=== PATIENT | female | born 1950 | race African-American/Black ===

== ENCOUNTER 2016-06-23 18:30 | Emergency (ER) | payer MEDICARE, MEDICAID ==
[2016-06-20] MEDS: METFORMIN HCL 500 MG TABLET PO SCH (09:00)
--- NOTE | 2016-06-23 19:38 | ER Document Report ---
ED Psych Disorder / Suicide - General Chief Complaint: Psych Problem Stated Complaint: PSYCH EVAL Notes: The patient is a 65-year-old female, past medical history depression, hypertension, diabetes, presents from [facility] after she was evaluated for increasing auditory hallucinations and depression. She has been off her Depakote for the past 2 weeks because she was switched to generic Depakote and this caused sores in her mouth. She is trying Orajel without much relief. She denies suicidality, homicidality, headache, back pain, chest pain, shortness of breath, difficulty swallowing or fevers. TRAVEL OUTSIDE OF THE [place] 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 - Social History Smoking Status: Unknown if Ever Smoked Family History: Reviewed & Not Pertinent - Past Medical History Cardiac Medical History: Reports: Hx Hypertension Denies: Hx Coronary Artery Disease, Hx Heart Attack Pulmonary Medical History: Denies: Hx Asthma, Hx Bronchitis, Hx COPD, Hx Pneumonia Neurological Medical History: Denies: Hx Cerebrovascular Accident, Hx Seizures Endocrine Medical History: Reports: Hx Diabetes Mellitus Type 2 Renal/ Medical History: Denies: Hx Peritoneal Dialysis Musculoskeltal Medical History: Denies Hx Arthritis Psychiatric Medical History: Reports: Hx Bipolar Disorder Past Surgical History: Reports: Hx Tubal Ligation, Hx Urinary Tract Surgery. Denies: Hx Hysterectomy - Immunizations Hx Diphtheria, Pertussis, Tetanus Vaccination: Yes Hx Pneumococcal Vaccination: 12/12/13 Review of Systems - Review of Systems Notes: REVIEW OF SYSTEMS: CONSTITUTIONAL: -fevers, -chills EENT: -eye pain, -difficulty swallowing, -nasal congestion CARDIOVASCULAR:-chest pain, -syncope. RESPIRATORY: -cough, -SOB GASTROINTESTINAL: -abdominal pain, - nausea, -vomiting, -diarrhea GENITOURINARY: -dysuria, -hematuria MUSCULOSKELETAL: -back pain, -neck pain SKIN: -rash or skin lesions. HEMATOLOGIC: -easy bruising or bleeding. LYMPHATIC: -swollen, enlarged glands. NEUROLOGICAL: -headache, -neurologic symptoms PSYCHIATRIC: -anxiety, +depression, -SI, -HI, +hallucinations ALL OTHER SYSTEMS REVIEWED AND NEGATIVE. Physical Exam - Vital signs Vitals: Temp Pulse Resp BP Pulse Ox 98.5 F 97 18 160/81 H 96 06/23/16 18:59 06/23/16 18:59 06/23/16 18:59 06/23/16 18:59 06/23/16 18:59 - Notes Notes: PHYSICAL EXAMINATION: GENERAL: Well-appearing, well-nourished and in no acute distress. HEAD: Atraumatic, normocephalic. EYES: Pupils equal round and reactive to light, extraocular movements intact, sclera anicteric, conjunctiva are normal. ENT: multiple aphthous ulcers, nares patent, oropharynx clear without exudates. Moist mucous membranes. NECK: Normal range of motion, supple without lymphadenopathy LUNGS: Breath sounds clear to auscultation bilaterally and equal. No wheezes rales or rhonchi. HEART: Regular rate and rhythm without murmurs ABDOMEN: Soft, nontender, normoactive bowel sounds. No guarding, no rebound. No masses appreciated. EXTREMITIES: Normal range of motion, no pitting or edema. No cyanosis. NEUROLOGICAL: Cranial nerves grossly intact. Normal speech, normal gait. Normal sensory, motor, and reflex exams. PSYCH: Cooperative, auditory gnosticism hallucinations, mumbles answers SKIN: Warm, Dry, normal turgor, no rashes or lesions noted. Course - Re-evaluation Re-evalutation: With increasing depression and auditory hallucinations after stopping her Depakote, will have mental health evaluate patient for medication adjustments. Labs and urine sent to assess for other causes of her altered mental status. She denies SI or HI. Urine shows evidence of UTI, although there are signs of a contaminated specimen. Will treat with Macrobid. Sodium is 151. Will provide water for patient to drink. Also will provide KCl for slight hypokalemia. - Vital Signs Vital signs: Temp Pulse Resp BP Pulse Ox 97.4 F 88 18 156/77 H 99 06/24/16 06:57 06/24/16 06:57 06/24/16 06:57 06/24/16 06:57 06/24/16 06:57 - Laboratory Result Diagrams: 06/23/16 20:05 06/23/16 20:05 Laboratory results interpreted by me: 06/23/16 06/23/16 06/23/16 19:40 20:05 20:05 Hgb 10.2 L Hct 32.3 L MCV 67 L MCH 21.2 L MCHC 31.6 L RDW 16.3 H Monocytes % 15.1 H Sodium 151.2 H Potassium 3.3 L Glucose 154 H Urine Protein 100 H Urine Ketones TRACE H Urine Blood MODERATE H Urine Urobilinogen 4.0 H Ur Leukocyte Esterase LARGE H Salicylates < 1.0 L Acetaminophen < 10 L Discharge - Discharge Clinical Impression: Auditory hallucination Condition: Stable Disposition: PSYCH HOSP/UNIT
[2016-06-23 20:03] LABS: APPEARANCE,URINE CLOUDY; BILIRUBIN,URINE NEGATIVE (NEGATIVE); GLUCOSE, URINE NEGATIVE (NEGATIVE); KETONES,URINE TRACE mg/dL (NEGATIVE); LEUKOCYTE ESTERASE,URINE LARGE (NEGATIVE); NITRITE,URINE NEGATIVE (NEGATIVE); PROTEIN,URINE 100 mg/dL (NEGATIVE); URINE SPECIFIC GRAVITY 1.029
[2016-06-23 20:14] LABS: URINE BARBITURATES SCREEN NEGATIVE; URINE METHADONE SCREEN NEGATIVE; URINE OPIATES LOW NEGATIVE; URINE PHENCYCLIDINE SCREEN NEGATIVE
[2016-06-23 20:18] LABS: ABSOLUTE BASOPHILS # (AUTO) 0.1 10^3/uL (0.0-0.2); ABSOLUTE EOSINOPHILS # (AUTO) 0.2 10^3/uL (0.0-0.6); ABSOLUTE LYMPHOCYTES (AUTO) 1.6 10^3/uL (0.5-4.7); ABSOLUTE MONOCYTES (AUTO) 0.9 10^3/uL (0.1-1.4); ABSOLUTE NEUT (AUTO) 3.5 10^3/uL (1.7-8.2); EOSINOPHILS % (AUTO) 2.8 % (0-6); HEMATOCRIT 32.3 % (36.0-47.0); HEMOGLOBIN 10.2 g/dL (12.0-15.5); HGB HCT DIFFERENCE -1.7; LYMPHOCYTES % (AUTO) 25.5 % (13-45); MEAN CORPUSCULAR HEMOGLOBIN 21.2 pg (27.0-33.4); MEAN CORPUSCULAR HGB CONC 31.6 g/dL (32.0-36.0); MEAN CORPUSCULAR VOLUME 67 fl (80-97); MONOCYTES % (AUTO) 15.1 % (3-13); RED BLOOD COUNT 4.82 10^6/uL (3.72-5.28); RED CELL DISTRIBUTION WIDTH 16.3 % (11.5-14.0); SEGMENTED NEUTROPHILS % (AUTO) 55.6 % (42-78); WHITE BLOOD COUNT 6.2 10^3/uL (4.0-10.5)
[2016-06-23 20:30] LABS: ALANINE AMINOTRANSFERASE 40 U/L (9-52); ALBUMIN 4.2 g/dL (3.5-5.0); ALKALINE PHOSPHATASE 77 U/L (38-126); ANION GAP 14 (5-19); ASPARTATE AMINO TRANSFERASE 35 U/L (14-36); BILIRUBIN,DIRECT 0.3 mg/dL (0.0-0.4); BILIRUBIN,TOTAL 0.8 mg/dL (0.2-1.3); BLOOD UREA NITROGEN 13 mg/dL (7-20); CALCIUM 9.9 mg/dL (8.4-10.2); CARBON DIOXIDE 30 mmol/L (22-30); CHLORIDE 107 mmol/L (98-107); CREATININE RESULT 0.61 mg/dL (0.52-1.25); GLUCOSE 154 mg/dL (75-110); POTASSIUM 3.3 mmol/L (3.6-5.0); SODIUM 151.2 mmol/L (137-145); TOTAL PROTEIN 7.2 g/dL (6.3-8.2)
[2016-06-23 20:31] LABS: ALCOHOL < 10 mg/dL (NONE DETECTED)
[2016-06-23] MEDS ORDERED: NYSTATIN/DEXAMETH/DIPHEN SUSP 120 ML PO PRN (21:06)
[2016-06-23] MEDS: NITROFURANTOIN MONOHYD/M-CRYST 100 MG CAPSULE PO SCH (21:47)
[2016-06-23] MEDS: NYSTATIN/DEXAMETH/DIPHEN SUSP 120 ML PO PRN (21:48)
[2016-06-23] MEDS ORDERED: ACETAMINOPHEN 325 MG TABLET PO ONE (23:17)
[2016-06-23] MEDS: HALOPERIDOL 5 MG TABLET PO PRN (23:24)
[2016-06-24] MEDS: NYSTATIN/DEXAMETH/DIPHEN SUSP 120 ML PO PRN ×3 (06:46→19:50)
--- NOTE | 2016-06-24 08:31 | EKG REPORT ---
SEVERITY:- ABNORMAL ECG - SINUS RHYTHM FIRST DEGREE AV BLOCK LEFT AXIS DEVIATION BORDERLINE PROLONGED QT INTERVAL : Confirmed by: Reji Hogue MD 24-Jun-2016 08:30:48
[2016-06-24] MEDS: NITROFURANTOIN MONOHYD/M-CRYST 100 MG CAPSULE PO SCH ×2 (08:52→21:50)
[2016-06-24] MEDS ORDERED: METFORMIN HCL 1000 MG PO SCH (10:00)
[2016-06-24] MEDS ORDERED: (PENDING PHARMACY ID) (Potassium Chloride [Potassium Chloride] 10 MEQ) PO SCH (10:00)
[2016-06-24] MEDS: TRIAMTERENE/HYDROCHLOROTHIAZID 75-50 MG TABLET PO SCH (11:02)
[2016-06-24] MEDS: POTASSIUM CHLORIDE 10 MEQ TABLET.SA PO SCH (11:02)
[2016-06-24] MEDS: LISINOPRIL 10 MG TABLET PO SCH (11:02)
[2016-06-24] MEDS: METFORMIN HCL 500 MG TABLET PO SCH ×3 (11:06→21:51)
[2016-06-24] MEDS: DIVALPROEX SODIUM 125 MG CAP.SPRINK PO SCH (16:56)
[2016-06-24] MEDS: HALOPERIDOL 5 MG TABLET PO PRN (21:51)
[2016-06-24] MEDS ORDERED: ACETAMINOPHEN 325 MG TABLET PO ONE (23:45)
[2016-06-25] MEDS ORDERED: HALOPERIDOL LACTATE INJ 5 MG/1 ML VIAL IM ONE (01:45)
[2016-06-25] MEDS ORDERED: LORAZEPAM INJ 2 MG/1 ML VIAL IM ONE (01:45)
[2016-06-25] MEDS: NITROFURANTOIN MONOHYD/M-CRYST 100 MG CAPSULE PO SCH ×2 (09:13→21:16)
[2016-06-25] MEDS: METFORMIN HCL 500 MG TABLET PO SCH ×4 (09:13→21:16)
--- NOTE | 2016-06-25 10:13 | ER Document Report ---
ED Medical Screen (RME) - General Chief Complaint: Psych Problem Stated Complaint: PSYCH EVAL Notes: Progress note: This patient is here on day 2 after presentation for acute psychoses. Reportedly the patient had been stable on Depakote for many years but then recently stopped taking her medication because she had some sort of rash in her mouth. She became psychotic and presented to the emergency department agitated and lashing out. She required sedation on initial arrival. She is not suicidal or homicidal. The patient has been given Depakote here in the emergency department and plan is to get her therapeutic on the Depakote before discharge - possibly 2-3 more days. Patient slept and had no issues through the night. Vital signs are stable. I did note that the patient's sodium is 152 which is hypernatremic. We will recheck that today and encourage by mouth fluids as this is likely secondary to mild dehydration. TRAVEL OUTSIDE OF THE [place] IN LAST 30 DAYS: No - Related Data Allergies/Adverse Reactions: codeine [Codeine] Allergy (Mild, Verified 05/16/15 08:38) Nausea Past Medical History - Social History Chew tobacco use (# tins/day): No Frequency of alcohol use: None Drug Abuse: None - Past Medical History Cardiac Medical History: Reports: Hx Hypertension Denies: Hx Coronary Artery Disease, Hx Heart Attack Pulmonary Medical History: Denies: Hx Asthma, Hx Bronchitis, Hx COPD, Hx Pneumonia Neurological Medical History: Denies: Hx Cerebrovascular Accident, Hx Seizures Endocrine Medical History: Reports: Hx Diabetes Mellitus Type 2 Renal/ Medical History: Denies: Hx Peritoneal Dialysis Musculoskeltal Medical History: Denies Hx Arthritis Psychiatric Medical History: Reports: Hx Bipolar Disorder Past Surgical History: Reports: Hx Tubal Ligation, Hx Urinary Tract Surgery. Denies: Hx Hysterectomy - Immunizations Hx Diphtheria, Pertussis, Tetanus Vaccination: Yes Physical Exam - Vital signs Vitals: Temp Pulse Resp BP Pulse Ox 98.5 F 97 18 160/81 H 96 06/23/16 18:59 06/23/16 18:59 06/23/16 18:59 06/23/16 18:59 06/23/16 18:59 Course - Vital Signs Vital signs: Temp Pulse Resp BP Pulse Ox 97.0 F 89 16 145/82 H 95 06/25/16 05:00 06/25/16 05:00 06/25/16 05:00 06/25/16 05:00 06/25/16 05:00 - Laboratory Result Diagrams: 06/23/16 20:05 06/23/16 20:05 Laboratory results interpreted by me: 06/23/16 06/23/16 06/23/16 19:40 20:05 20:05 Hgb 10.2 L Hct 32.3 L MCV 67 L MCH 21.2 L MCHC 31.6 L RDW 16.3 H Monocytes % 15.1 H Sodium 151.2 H Potassium 3.3 L Glucose 154 H Urine Protein 100 H Urine Ketones TRACE H Urine Blood MODERATE H Urine Urobilinogen 4.0 H Ur Leukocyte Esterase LARGE H Salicylates < 1.0 L Acetaminophen < 10 L Doctor's Discharge - Discharge Clinical Impression: Auditory hallucination Condition: Stable Disposition: PSYCH HOSP/UNIT Referrals: MICHAEL REEVES FNP [Primary Care Provider] - Follow up as needed
[2016-06-25] MEDS: LISINOPRIL 10 MG TABLET PO SCH (10:54)
[2016-06-25] MEDS: TRIAMTERENE/HYDROCHLOROTHIAZID 75-50 MG TABLET PO SCH (10:54)
[2016-06-25] MEDS: POTASSIUM CHLORIDE 10 MEQ TABLET.SA PO SCH (10:54)
--- NOTE | 2016-06-25 11:21 | PSYCHOLOGICAL NOTE ---
Psych Note - Psych Note Psych Note: The patient is a 65-year-old female, past medical history depression, hypertension, diabetes, presents from [facility] after she was evaluated for increasing auditory hallucinations and depression. She has been off her Depakote for the past 2 weeks because she was switched to generic Depakote and this caused sores in her mouth. Patient discloses that she is not feeling well. She continued to disclose that when she came in she "could not see" and today she can "see only a little bit." Patient was indicating her eyes at this point. Clinician notes patient is demonstrating behavior indicating patient is becoming more aware and not as manic. Patient states she will take her medication however it has to be "the sanchez one not the pink one." Clinician notes patient was taking the name brand medication Depakote previously and reports she had allergic reaction to generic version when switched. Patient states she is willing to take the name brand again. 296.80 (F31.9) Unspecified bipolar per history provided by family Impression\\plan: Patient is recommended for continued mental health hold until patient's medications are within therapeutic range. Patient has been demonstrating manic behavior with delusions but is starting to verbalize information that could indicate she is improving and becoming more aware. Patient had been off medication for approximately 2 weeks. Patient will be reevaluated. Dr. Victoria was consulted on the care and management of this patient; attending physician is in agreement with recommendations and disposition
[2016-06-25 13:14] LABS: ANION GAP 16 (5-19); BLOOD UREA NITROGEN 12 mg/dL (7-20); CARBON DIOXIDE 28 mmol/L (22-30); CHLORIDE 100 mmol/L (98-107); CREATININE RESULT 0.73 mg/dL (0.52-1.25); GLUCOSE 119 mg/dL (75-110); POTASSIUM 3.2 mmol/L (3.6-5.0); SODIUM 144.1 mmol/L (137-145)
[2016-06-25] MEDS: DIVALPROEX SODIUM 125 MG CAP.SPRINK PO SCH (17:04)
[2016-06-25] MEDS: NYSTATIN/DEXAMETH/DIPHEN SUSP 120 ML PO PRN (21:15)
[2016-06-26] MEDS: HALOPERIDOL 5 MG TABLET PO PRN (02:11)
[2016-06-26] MEDS ORDERED: OLANZAPINE 5 MG TABLET PO ONE (03:43)
[2016-06-26] MEDS: METFORMIN HCL 500 MG TABLET PO SCH ×4 (08:00→21:05)
[2016-06-26] MEDS: NITROFURANTOIN MONOHYD/M-CRYST 100 MG CAPSULE PO SCH ×2 (09:09→21:05)
[2016-06-26] MEDS: POTASSIUM CHLORIDE 10 MEQ TABLET.SA PO SCH (09:35)
[2016-06-26] MEDS: TRIAMTERENE/HYDROCHLOROTHIAZID 75-50 MG TABLET PO SCH (09:35)
[2016-06-26] MEDS: LISINOPRIL 10 MG TABLET PO SCH (09:35)
--- NOTE | 2016-06-26 10:24 | ER Document Report ---
Doctor's Note Notes: 06/26/16 10:23 Rounds: Patient record reviewed and patient interviewed. Patient seems to be much better and says she feels much better this morning. It is very calm and cooperative and feels she is doing better since she's been given her medications. A Depakote level is being drawn. Vital signs are all normal. Patient's urinalysis looks like a UTI. She's been started on nitrofurantoin. Patient appears to be medically stable for transfer or discharge. Daniel Medina M.D.
[2016-06-26] MEDS: DIVALPROEX SODIUM 125 MG CAP.SPRINK PO SCH (17:00)
[2016-06-26] MEDS: NYSTATIN/DEXAMETH/DIPHEN SUSP 120 ML PO PRN (17:00)
[2016-06-26] MEDS ORDERED: RISPERIDONE 1 MG TABLET PO ONE (22:14)
--- NOTE | 2016-06-27 07:50 | PSYCHOLOGICAL NOTE ---
Psych Note - Psych Note Psych Note: The patient is a 65-year-old female, past medical history depression, hypertension, diabetes, presents from [facility] after she was evaluated for increasing auditory hallucinations and depression. She has been off her Depakote for the past 2 weeks because she was switched to generic Depakote and this caused sores in her mouth. Clinician conducted check in Patient openly engaged with clinician. She discussed step by step the process of using the hospital's public bathroom. Patient is observed to be focused on wanting to write information down. Patient appears to understand information once she goes through the process of writing it. Patient's family states the patient is still not presenting normal; "still 100% not her." 296.80 (F31.9) Unspecified bipolar per history provided by family Impression\\plan: Patient is recommended for continued mental health hold until patient's medications are within therapeutic range. Patient has been demonstrating manic behavior with delusions but is starting to verbalize information that could indicate she is improving and becoming more aware. Patient appears to understand information better when written. Patient had been off medication for approximately 2 weeks. Patient will be reevaluated. Dr. Victoria was consulted on the care and management of this patient; attending physician is in agreement with recommendations and disposition
[2016-06-27] MEDS ORDERED: POTASSIUM CHLORIDE 10 MEQ TABLET.SA PO ONE (09:57)
[2016-06-27] MEDS: LISINOPRIL 10 MG TABLET PO SCH (10:00)
[2016-06-27] MEDS: NITROFURANTOIN MONOHYD/M-CRYST 100 MG CAPSULE PO SCH (10:00)
[2016-06-27] MEDS: TRIAMTERENE/HYDROCHLOROTHIAZID 75-50 MG TABLET PO SCH (10:00)
[2016-06-27] MEDS: POTASSIUM CHLORIDE 10 MEQ TABLET.SA PO SCH (10:00)
--- NOTE | 2016-06-27 10:20 | ER Document Report ---
Doctor's Note Notes: 06/27/16 10:19 Rounds: Chart reviewed and patient interviewed. Patient is very alert and happy and seems to be quite stable medically at this time. Vital signs are all normal. Patient's initial labs had a high sodium, but it's come down to 144. Potassium remains low at 3.2. Patient is being given oral potassium 40 mEq this morning. She is also on an antibiotic for a likely UTI. Her valproic acid level was 25. Patient appears to be medically stable for transfer or discharge. Likely that she will be discharged today. Daniel Medina M.D.
--- NOTE | 2016-06-27 10:37 | ER Document Report ---
ED Psych Disorder / Suicide - General Chief Complaint: Psych Problem Stated Complaint: PSYCH EVAL Information source: Patient, Relative - Daughter is marah, [facility] Records TRAVEL OUTSIDE OF THE [place] IN LAST 30 DAYS: No - HPI Patient complains to provider of: Bizarre behavior - pt reportedly demonstrated manic type symptoms sercondary to d/c her Depakote x 2 weeks, Hallucinating - upon arrival Onset: Last week - within the past 2 weeks Onset was: Gradual Suicide Risk Factors: Bipolar, Frightened friends/family, Hallucinations Situational problems related to: Other - Family reports the patient developed a rash in her mouth when her Depakote was switched to the generic brand Normal mood: Yes Associated symptoms: Normal affect - Today upon evaluation, Normal mood - Today upon evaluation, Auditory hallucinations - GRAVEL HAULER, Flight of ideas - GRAVEL HAULER, Manic - GRAVEL HAULER, Visual hallucinations - GRAVEL HAULER Similar symptoms previously: Yes Recently seen / treated by doctor: Yes - [facility] sent to ER Notes: Patient is a 65-year-old female who initially presented via [facility] with complaints of hallucinations, and possible reaction to generic form of Depakote. Patient has been held in the Department under a mental health hold monitored while medications were administered to assist with stabilization. Patient today presents pleasant and is asking for a shower. Patient has taken all medications as ordered. Patient today is smiling and pleasantly engages in conversations. Patient discusses her grandchildren and other family members. Patient offers that her daughter, who is bedside be managing her medications and providing her doses when they are due. Patient reports she is agreeable to this. Patient denies SI/HI. Patient denies A/VH. Patient is alert and oriented. Mood is pleasant, euthymic, smiling affect. Patient denies SI/HI. Patient denies A/VH. Thought processes were organized. Conversational speech was WNL for rate, tone, and prosody. Intellectual abilities were estimated within average range. Attention and focus were fair. Insight, judgment, impulse control were fair. 296.80 (F31.9) Unspecified bipolar per history provided by family Patient is psychiatrically cleared and recommended for discharge to her daughter. It is suggested patient follow-up with her psychiatric provider within 3-5 days. Symptoms and concerns reported upon arrival are no longer reported to be of concern by family and/or patient. Patient has taken all medications as ordered. Patient denies A/VH. Patient denies SI/HI. I consulted with Dr. Victoria in regards to the care and management of this patient. ED M.Amanda. is in agreement with disposition and recommendations. 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 - Social History Smoking Status: Unknown if Ever Smoked Chew tobacco use (# tins/day): No Frequency of alcohol use: None Drug Abuse: None Family History: Reviewed & Not Pertinent - Past Medical History Cardiac Medical History: Reports: Hx Hypertension Denies: Hx Coronary Artery Disease, Hx Heart Attack Pulmonary Medical History: Denies: Hx Asthma, Hx Bronchitis, Hx COPD, Hx Pneumonia Neurological Medical History: Denies: Hx Cerebrovascular Accident, Hx Seizures Endocrine Medical History: Reports: Hx Diabetes Mellitus Type 2 Renal/ Medical History: Denies: Hx Peritoneal Dialysis Musculoskeltal Medical History: Denies Hx Arthritis Psychiatric Medical History: Reports: Hx Bipolar Disorder Past Surgical History: Reports: Hx Tubal Ligation, Hx Urinary Tract Surgery. Denies: Hx Hysterectomy - Immunizations Hx Diphtheria, Pertussis, Tetanus Vaccination: Yes Hx Pneumococcal Vaccination: 12/12/13 Physical Exam - Vital signs Vitals: Temp Pulse Resp BP Pulse Ox 98.5 F 97 18 160/81 H 96 06/23/16 18:59 06/23/16 18:59 06/23/16 18:59 06/23/16 18:59 06/23/16 18:59 Course - Vital Signs Vital signs: Temp Pulse Resp BP Pulse Ox 98.0 F 83 20 145/66 H 100 06/27/16 06:59 06/27/16 06:59 06/27/16 06:59 06/27/16 06:59 06/27/16 06:59 - Laboratory Result Diagrams: 06/23/16 20:05 06/25/16 12:44 Laboratory results interpreted by me: 06/23/16 06/23/16 06/23/16 19:40 20:05 20:05 Hgb 10.2 L Hct 32.3 L MCV 67 L MCH 21.2 L MCHC 31.6 L RDW 16.3 H Monocytes % 15.1 H Sodium 151.2 H Potassium 3.3 L Glucose 154 H Urine Protein 100 H Urine Ketones TRACE H Urine Blood MODERATE H Urine Urobilinogen 4.0 H Ur Leukocyte Esterase LARGE H Salicylates < 1.0 L Acetaminophen < 10 L Valproic Acid 06/25/16 06/26/16 12:44 09:55 Hgb Hct MCV MCH MCHC RDW Monocytes % Sodium Potassium 3.2 L Glucose 119 H Urine Protein Urine Ketones Urine Blood Urine Urobilinogen Ur Leukocyte Esterase Salicylates Acetaminophen Valproic Acid 25.5 L Discharge - Discharge Clinical Impression: Bipolar I disorder, most recent episode (or current) manic, moderate Condition: Stable Disposition: HOME, SELF-CARE Instructions: Hallucinations ([facility]), Bipolar Disorder ([facility]) Additional Instructions: Please follow-up with your provider within 3-5 days. You have engaged in creating a plan of care for discharge, to include allowing her daughter to manage and oversee medications. You have been provided a list of resources to community providers, to include mobile crisis. Please return if your symptoms worsen. Referrals: MICHAEL REEVES FNP [Primary Care Provider] - Follow up as needed
[2016-06-27] MEDS ORDERED: DIVALPROEX SODIUM 125 MG CAP.SPRINK PO ONE (10:43)
[2016-06-27 11:28] VITALS: BP 142/88
== END 2016-06-27 11:29 | disposition home or self-care (01) ==
LOC: ER 18:30
DX: F31.9 Bipolar disorder, unspecified (principal); F91.9 Conduct disorder, unspecified; R44.3 Hallucinations, unspecified; Z79.899 Other long term (current) drug therapy
CPT/HCPCS: 93005; 99284; 96372; 36415; 80307 ×4; 85025; 80048; 80053; 81001; 80164; 93010; A9270 ×9; J1630; J2060; J3490; J8499

== ENCOUNTER 2016-06-29 03:14 | Emergency (ER) | payer MEDICARE, MEDICAID ==
--- NOTE | 2016-06-29 04:50 | ER Document Report ---
ED General - General Chief Complaint: Psych Problem Stated Complaint: PSYCH EVALUATION Notes: Patient is a 65 year old female who presents with complaint of bipolar disorder. She is recently discharged from our facility. Depakote was added to her medications. Family says since being discharged she has had not slept and she's been out walking around neighborhood and knocking on people's doors. As the patient about this and she says that she was knocking on people's doors because she she needs someone to help fix her phone. She does live with her son. She said her son would not help her and is why she left the house. She does admit to not sleeping. She denies being depressed. She denies being suicidal. She has no other complaints at this time. TRAVEL OUTSIDE OF THE [place] IN LAST 30 DAYS: No - Related Data Allergies/Adverse Reactions: codeine [Codeine] Allergy (Mild, Verified 05/16/15 08:38) Nausea Past Medical History - Social History Smoking Status: Unknown if Ever Smoked Frequency of alcohol use: None Drug Abuse: None Family History: Reviewed & Not Pertinent Patient has suicidal ideation: No Patient has homicidal ideation: No - Past Medical History Cardiac Medical History: Reports: Hx Hypertension Denies: Hx Coronary Artery Disease, Hx Heart Attack Pulmonary Medical History: Denies: Hx Asthma, Hx Bronchitis, Hx COPD, Hx Pneumonia Neurological Medical History: Denies: Hx Cerebrovascular Accident, Hx Seizures Endocrine Medical History: Reports: Hx Diabetes Mellitus Type 2 Renal/ Medical History: Denies: Hx Peritoneal Dialysis Musculoskeltal Medical History: Denies Hx Arthritis Psychiatric Medical History: Reports: Hx Bipolar Disorder Past Surgical History: Reports: Hx Tubal Ligation, Hx Urinary Tract Surgery. Denies: Hx Hysterectomy - Immunizations Hx Diphtheria, Pertussis, Tetanus Vaccination: Yes Hx Pneumococcal Vaccination: 12/12/13 Review of Systems - Review of Systems Notes: My Normal Review Basic REVIEW OF SYSTEMS: CONSTITUTIONAL : Denies fever, chills, or sweats. Denies recent illness. EENT: Denies eye, ear, throat, or mouth pain or symptoms. Denies nasal or sinus congestion.ain. RESPIRATORY: Denies cough, cold, or chest congestion. Denies shortness of breath, difficulty breathing, or wheezing. GASTROINTESTINAL: Denies abdominal pain. Denies nausea, vomiting, or diarrhea. Denies constipation. Last BM: : MUSCULOSKELETAL: Denies neck or back pain or joint pain or swelling. SKIN: Denies rash or skin lesions. NEUROLOGICAL: Denies altered mental status or loss of consciousness. Denies headache. Denies weakness or paralysis or loss of use of either side. Denies problems with gait or speech. Denies sensory or motor loss. PSYCHIATRIC: History bipolar. Recent symptoms suggesting esau. ALL OTHER SYSTEMS REVIEWED AND NEGATIVE. Physical Exam - Vital signs Vitals: Temp Pulse Resp BP Pulse Ox 98.7 F 90 18 145/86 H 99 06/29/16 03:22 06/29/16 03:22 06/29/16 03:22 06/29/16 03:22 06/29/16 03:22 - Notes Notes: General Appearance: Well nourished, alert, cooperative, no acute distress, no obvious discomfort. Patient is somewhat hyper during exam. She is pleasant and kind without agitation. Vitals: reviewed, See vital signs table. Head: no swelling or tenderness to the head Eyes: PERRL, EOMI, Conjuctiva clear Mouth: No decreasd moisture Throat: No tonsillar inflammation, No airway obstruction, No lymphadenopathy Lungs: No wheezing, No rales, No rhonci, No accessory muscle use, good air exchange bilaterally. Heart: Normal rate, Regular rythm, No murmur, no rub Extremities: strength 5/5 in all extremities, good pulses in all extremities, no swelling or tenderness in the extremities, no edema. Skin: warm, dry, appropriate color, no rash Neuro: speech clear, oriented x 3, normal affect, responds appropriately to questions. Course - Vital Signs Vital signs: Temp Pulse Resp BP Pulse Ox 98.7 F 90 18 145/86 H 99 06/29/16 03:22 06/29/16 03:22 06/29/16 03:22 06/29/16 03:22 06/29/16 03:22 - Laboratory Result Diagrams: 06/29/16 05:22 06/29/16 05:22 Laboratory results interpreted by me: 06/29/16 06/29/16 05:22 05:22 Hgb 10.2 L Hct 32.2 L MCV 67 L MCH 21.2 L MCHC 31.7 L RDW 16.2 H Monocytes % 14.7 H Glucose 61 L Salicylates < 1.0 L Acetaminophen < 10 L - EKG Interpretation by Me Additional EKG results interpreted by me: 06/29/16 06:02 EKG is reviewed and interpreted by me. EKG shows normal sinus rhythm with rate of [address] segment elevation or depression. No ischemic T wave inversions. Intervals prolonged. QRS duration is within normal range. QTc interval is prolonged. Old EKG for comparison is from 06/23/2016. - Transfer of Care Notes: 06/29/16 06:50 Patient is medically stable for psychiatric evaluation. The exiting signs of esau. Will have psychiatry evaluate her this morning. She is placed on the IVC paperwork. 06/29/16 06:51
[2016-06-29 05:33] LABS: ABSOLUTE BASOPHILS # (AUTO) 0.1 10^3/uL (0.0-0.2); ABSOLUTE EOSINOPHILS # (AUTO) 0.2 10^3/uL (0.0-0.6); ABSOLUTE LYMPHOCYTES (AUTO) 1.9 10^3/uL (0.5-4.7); ABSOLUTE MONOCYTES (AUTO) 0.9 10^3/uL (0.1-1.4); ABSOLUTE NEUT (AUTO) 2.9 10^3/uL (1.7-8.2); BASOPHILS % (AUTO) 0.9 % (0-2); EOSINOPHILS % (AUTO) 3.3 % (0-6); HEMATOCRIT 32.2 % (36.0-47.0); HEMOGLOBIN 10.2 g/dL (12.0-15.5); HGB HCT DIFFERENCE -1.6; LYMPHOCYTES % (AUTO) 31.8 % (13-45); MEAN CORPUSCULAR HEMOGLOBIN 21.2 pg (27.0-33.4); MEAN CORPUSCULAR HGB CONC 31.7 g/dL (32.0-36.0); MEAN CORPUSCULAR VOLUME 67 fl (80-97); MONOCYTES % (AUTO) 14.7 % (3-13); RED BLOOD COUNT 4.82 10^6/uL (3.72-5.28); RED CELL DISTRIBUTION WIDTH 16.2 % (11.5-14.0); SEGMENTED NEUTROPHILS % (AUTO) 49.3 % (42-78)
[2016-06-29 05:47] LABS: ALANINE AMINOTRANSFERASE 39 U/L (9-52); ALBUMIN 3.8 g/dL (3.5-5.0); ALKALINE PHOSPHATASE 62 U/L (38-126); ANION GAP 13 (5-19); ASPARTATE AMINO TRANSFERASE 31 U/L (14-36); BILIRUBIN,DIRECT 0.3 mg/dL (0.0-0.4); BILIRUBIN,TOTAL 0.5 mg/dL (0.2-1.3); BLOOD UREA NITROGEN 20 mg/dL (7-20); CALCIUM 9.7 mg/dL (8.4-10.2); CARBON DIOXIDE 29 mmol/L (22-30); CHLORIDE 102 mmol/L (98-107); CREATININE RESULT 0.71 mg/dL (0.52-1.25); GLUCOSE 61 mg/dL (75-110); POTASSIUM 4.1 mmol/L (3.6-5.0); SODIUM 144.1 mmol/L (137-145); TOTAL PROTEIN 6.7 g/dL (6.3-8.2)
[2016-06-29 06:01] LABS: ALCOHOL < 10 mg/dL (NONE DETECTED)
[2016-06-29] MEDS: METFORMIN HCL 500 MG TABLET PO SCH ×2 (09:09→18:46)
[2016-06-29] MEDS: TRIAMTERENE/HYDROCHLOROTHIAZIDE 37.5-25 MG TABLET PO SCH (09:56)
[2016-06-29] MEDS ORDERED: DIVALPROEX SODIUM 500 MG TAB.SR.24H PO SCH (10:00)
[2016-06-29 10:03] LABS: APPEARANCE,URINE CLEAR; BILIRUBIN,URINE NEGATIVE (NEGATIVE); GLUCOSE, URINE NEGATIVE (NEGATIVE); KETONES,URINE NEGATIVE (NEGATIVE); LEUKOCYTE ESTERASE,URINE NEGATIVE (NEGATIVE); NITRITE,URINE NEGATIVE (NEGATIVE); PROTEIN,URINE NEGATIVE (NEGATIVE); URINE SPECIFIC GRAVITY 1.008; UROBILINOGEN,URINE NEGATIVE mg/dL (<2.0)
[2016-06-29 10:21] LABS: URINE BARBITURATES SCREEN NEGATIVE; URINE METHADONE SCREEN NEGATIVE; URINE OPIATES LOW NEGATIVE; URINE PHENCYCLIDINE SCREEN NEGATIVE
[2016-06-29] MEDS ORDERED: DIPHENHYDRAMINE HCL 50 MG CAPSULE PO ONE (12:09)
--- NOTE | 2016-06-29 12:11 | ER Document Report ---
Doctor's Note Notes: 06/29/16 12:10 Patient was evaluated at bedside, she has no complaints at present time, however nursing staff and family is noted that patient is making involuntary tongue movements while talking and this is a new finding, the only new medication she was started on yesterday with Depakote, her Depakote level is therapeutic, however it appears that she may be having a dystonic reaction, Benadryl has been ordered, and patient's Depakote will be discontinued, otherwise her stroke evaluation is negative and I don't believe there is a need for a CT scan at the present time
--- NOTE | 2016-06-29 13:26 | EKG REPORT ---
SEVERITY:- ABNORMAL ECG - SINUS RHYTHM FIRST DEGREE AV BLOCK LEFT ATRIAL ABNORMALITY LEFT AXIS DEVIATION : Confirmed by: Lulú Wallace MD 29-Jun-2016 13:25:19
[2016-06-29] MEDS ORDERED: BENZTROPINE MESYLATE INJ 2 MG/2 ML AMPULE IM ONE (16:30)
--- NOTE | 2016-06-29 17:07 | PSYCHOLOGICAL NOTE ---
Psych Note - Psych Note Psych Note: Patient is a 65 year old female who presents with complaint of bipolar disorder. She is recently discharged from our facility. Depakote was added to her medications. Family says since being discharged she has had not slept and she's been out walking around neighborhood and knocking on people's doors. Asked the patient about this and she says that she was knocking on people's doors because she she needs someone to help fix her phone. She does live with her son. She said her son would not help her and is why she left the house. She does admit to not sleeping. That she has been taking her medication; "I take everything my daughter gives me." She continued disclosed that her son took her phone and put in his room and when she attempted to knock on the door he did not answer. She continued to disclose that she then has gone very loudly however he still does not come out. She states that she got upset so went to her neighbor's home and knocked on their door to use her phone but they did not answer. She continue disclose that she went to the next neighbor who also did not answer the door even though "I know she is they are not awake." Patient states that she was trying to get her friend's house for a visit, which is why she was trying to call her daughter. Patient disclosed all the homes that she knocked on were family members. Clinician spoke with patient's daughter she disclosed the patient has not been sleeping. She continue disclose concern the patient was wandering the neighborhood knocking on people's doors stating "that is very dangerous." She states that while the patient was going to family members homes these were distant related family members. She continue disclosed that he was in the very early head start director hours when this occurred. Clinician asked about patient's observed tongue movements. Patient's daughter disclosed she had noticed the patient having difficulties like this when she came off the Depakote. She continued disclosed that she also just noticed it again coming back to [facility]. Patient is alert and orientated to person place time and circumstance. Patient' s mood is elevated with congruent affect. Patient denies suicidal and homicidal ideation. Patient denies auditory visual hallucinations; no current delusions are noted. Thought process is organized and linear. Thought content is very detail orientated i.e. patient likes to go [id number] and how things are done. Eye contact was well maintained. Intellectual abilities appear to be within average range. Attention and concentration are fair. Insight, judgment, impulse control are poor. 296.80 (F31.9) Unspecified bipolar per history provided by family Impression\\plan: Patient is recommended to continue under IVC. At this time is unclear the underlying cause of reported behaviors. Patient is at therapeutic levels for her mental health medications. Patient will be reevaluated. Dr. Victoria was consulted on the care and management of this patient; attending physician is in agreement with recommendations and disposition
[2016-06-29] MEDS ORDERED: ACETAMINOPHEN 325 MG TABLET PO ONE (17:43)
--- NOTE | 2016-06-29 17:44 | ER Document Report ---
Doctor's Note Notes: 06/29/16 17:43 Called to bedside to evaluate patient as she apparently was trying to sit down on a rolling stool and this slipped out from underneath her and she fell to the floor, landing on her buttocks, she reports very mild buttock pain, but is able to ambulate without difficulty, she is agreeable to having some Tylenol, physical exam findings are unremarkable
[2016-06-29] MEDS ORDERED: LORAZEPAM INJ 2 MG/1 ML VIAL IM ONE (23:45)
--- NOTE | 2016-06-29 23:45 | ER Document Report ---
Doctor's Note Notes: 06/29/16 23:44 To the bedside by the nurse patient is agitated wants something to rest. She is not suicidal or homicidal going to go ahead and give her a dose of Ativan and see if that helps her sleep.
[2016-06-29] MEDS ORDERED: ZIPRASIDONE MESYLATE INJ/PF 20 MG SDV IM ONE (23:54)
[2016-06-30] MEDS: METFORMIN HCL 500 MG TABLET PO SCH ×2 (10:12→17:07)
[2016-06-30] MEDS: TRIAMTERENE/HYDROCHLOROTHIAZIDE 37.5-25 MG TABLET PO SCH (10:12)
--- NOTE | 2016-06-30 10:44 | ER Document Report ---
Doctor's Note Notes: 06/30/16 10:40 Rounds: Chart reviewed and patient interviewed. Patient was just discharged from this facility on the afternoon of June 27, and was readmitted last night for manic behavior and conversation. Patient was discharged with a diagnosis of bipolar disorder and had Depakote added to her treatment regimen. Came back in because she was not sleeping and acting manic. After being admitted this time, patient was noted to have some dystonic reactions of her tongue and, even though she was not started on any new medications customarily associated with dystonic reactions, her Depakote was discontinued last night. Patient is very alert and active and talkative this morning. Does not exhibit any findings of a dystonic reaction. Vital signs are all normal. Labs also were all normal. Patient appears to be medically stable for transfer or discharge. Daniel Medina M.D.
[2016-06-30] MEDS ORDERED: LEVETIRACETAM 500 MG TABLET PO SCH (11:15)
[2016-06-30] MEDS: BUSPIRONE HCL 10 MG TABLET PO SCH (11:41)
[2016-06-30] MEDS ORDERED: BUSPIRONE HCL 10 MG TABLET PO ONE (12:00)
[2016-06-30] MEDS ORDERED: LEVETIRACETAM 500 MG TABLET PO ONE (12:00)
[2016-06-30] MEDS ORDERED: MAGNESIUM HYDROXIDE SUSP 30 ML UDCUP PO PRN (16:32)
[2016-06-30] MEDS: RISPERIDONE 0.25 MG TABLET PO SCH (17:07)
[2016-06-30] MEDS: LEVETIRACETAM 500 MG TABLET PO SCH (17:07)
[2016-07-01] MEDS ORDERED: HALOPERIDOL LACTATE INJ 5 MG/1 ML VIAL IM ONE ×2 (06:44→07:00)
[2016-07-01] MEDS ORDERED: HALOPERIDOL LACTATE INJ 5 MG/1 ML VIAL ONE (06:46)
[2016-07-01] MEDS ORDERED: LORAZEPAM INJ 2 MG/1 ML VIAL IM ONE (07:00)
[2016-07-01] MEDS ORDERED: DIPHENHYDRAMINE HCL 50 MG/ML VIAL IM ONE (07:00)
[2016-07-01] MEDS: BUSPIRONE HCL 10 MG TABLET PO SCH ×2 (10:08→10:10)
[2016-07-01] MEDS: RISPERIDONE 0.25 MG TABLET PO SCH (10:10)
[2016-07-01] MEDS: TRIAMTERENE/HYDROCHLOROTHIAZIDE 37.5-25 MG TABLET PO SCH (10:15)
[2016-07-01] MEDS: METFORMIN HCL 500 MG TABLET PO SCH (10:16)
[2016-07-01] MEDS: LEVETIRACETAM 500 MG TABLET PO SCH (10:16)
--- NOTE | 2016-07-01 10:34 | ER Document Report ---
Doctor's Note Notes: 07/01/16 10:33 This 65-year-old female patient is awaiting IVC placement this time. By history , she had done well on her bipolar medication for many many years. A few weeks ago it was changed, she developed a rash and stopped her medications. Since then she is decompensated. At this time she is in a recliner chair, and eating breakfast.
--- NOTE | 2016-07-01 10:39 | PSYCHOLOGICAL NOTE ---
Psych Note - Psych Note Psych Note: Patient is a 65 year old female who presents with complaint of bipolar disorder. She is recently discharged from our facility. Depakote was added to her medications. Family says since being discharged she has had not slept and she's been out walking around neighborhood and knocking on people's doors. Asked the patient about this and she says that she was knocking on people's doors because she she needs someone to help fix her phone. She does live with her son. She said her son would not help her and is why she left the house. She does admit to not sleeping. Clinician conducted chart review and notes patient has been acting out, threatening to throw food, sitting on the bathroom floor and reusing to get up. Clinician notes this behavior is opposite from what has been observed for this patient prior to medication changes made yesterday. Patient states that she was just trying to get people's attention in the hallway in her food was the only weapon she could find. When asked if there is a nicely around which she grabbed that she states "never I'm not a violent person." She continued disclosed that she accepts that she has to pay for her actions. She continue disclosed that she's had risperidone in the past and it only "makes me sleep." At that he is "not good because it controls me." Patient is alert and orientated to person, place, time and circumstance. Mood is dysphoric with flat affect. Patient denies suicidal and homicidal ideation. Patient denies auditory and visual hallucinations; patient is not demonstrating behaviour what would be congruent to responding to internal stimuli. No delusions are noted. Thought process is organized and linear. Eye contact was well maintained. Intellectual abilities appear to be within average range. Attention and concentration is fair. Insight, judgment, and impulse control is currently poor. 296.80 (F31.9) Unspecified bipolar per history provided by family Impression\\plan: Patient is recommended to continue under IVC. Patient is recommended for inpatient treatment to assist with stabilization on medications. Dr. Victoria was consulted on the care and management of this patient; attending physician is in agreement with recommendations and disposition
[2016-07-02] MEDS: BUSPIRONE HCL 10 MG TABLET PO SCH ×3 (01:39→22:44)
[2016-07-02] MEDS: TRIAMTERENE/HYDROCHLOROTHIAZIDE 37.5-25 MG TABLET PO SCH (10:01)
[2016-07-02] MEDS ORDERED: LIDOCAINE 2% VISCOUS SOLN 20 ML UDCUP PO ONE (13:22)
[2016-07-02] MEDS ORDERED: MAG HYDROX/AL HYDROX/SIMETH SUSP 30 ML UDCUP PO ONE (13:22)
--- NOTE | 2016-07-02 13:42 | PSYCHOLOGICAL NOTE ---
Psych Note - Psych Note Psych Note: Patient is a 65 year old female who presents with complaint of bipolar disorder. She is recently discharged from our facility. Depakote was added to her medications. Family says since being discharged she has had not slept and she's been out walking around neighborhood and knocking on people's doors. Asked the patient about this and she says that she was knocking on people's doors because she she needs someone to help fix her phone. She does live with her son. She said her son would not help her and is why she left the house. She does admit to not sleeping. Clinician conducted chart review and notes patient slept 3 hours, and was noted to be pleasant all night. Clinician observed patient to be coloring and when given some pages from a mindful coloring book, patient smiled and said pretty. Patient showed her daughter and then returned to coloring. Patient is alert and orientated to person, place, time and circumstance. Mood is euthymic with congruent affect; clinician notes patient is focused on coloring. Patient denies suicidal and homicidal ideation. Patient denies auditory and visual hallucinations; patient is not demonstrating behaviour what would be congruent to responding to internal stimuli. No delusions are noted. Thought process is organized and linear. Eye contact was well maintained. Intellectual abilities appear to be within average range. Attention and concentration is poor. Insight, judgment, and impulse control is currently poor. 296.80 (F31.9) Unspecified bipolar per history provided by family [id number]/O799.59 (R41.9) Unspecified Neurocognitive Disorder Impression\plan: Patient is recommended to continue under IVC. Patient is recommended for inpatient treatment to assist with stabilization on medications. Dr. Victoria was consulted on the care and management of this patient; attending physician is in agreement with recommendations and disposition
[2016-07-02] MEDS: METFORMIN HCL 500 MG TABLET PO SCH (18:40)
[2016-07-02] MEDS: LEVETIRACETAM 500 MG TABLET PO SCH (18:40)
--- NOTE | 2016-07-02 20:23 | ER Document Report ---
Doctor's Note Notes: 07/02/16 20:23 The patient continues to be little confused, comes to the door to talk with people. She was reevaluated by psych again today and decision was made to stop her Risperdal as they felt that was making her act out. She is also felt to be suffering from some degree of dementia complicating her evaluation. The plan at this time is to discharge the patient tomorrow after reevaluating in the morning.
[2016-07-03] MEDS: BUSPIRONE HCL 10 MG TABLET PO SCH (07:55)
--- NOTE | 2016-07-03 08:30 | ER Document Report ---
ED Psych Disorder / Suicide - General Chief Complaint: Psych Problem Stated Complaint: PSYCH EVALUATION TRAVEL OUTSIDE OF THE [place] IN LAST 30 DAYS: No - HPI Notes: Patient is a 65 year old female who presents with complaint of bipolar disorder. She is recently discharged from our facility. Depakote was added to her medications. Family says since being discharged she has had not slept and she's been out walking around neighborhood and knocking on people's doors. Asked the patient about this and she says that she was knocking on people's doors because she she needs someone to help fix her phone. She does live with her son. She said her son would not help her and is why she left the house. She does admit to not sleeping. Clinician conducted a check in with patient. She had started to demonstrate aggitation because she wanted to take a shower. Patient was easily redirected and calmed. Patient states she "wanted to look pretty" for her daughter when she came in. Patient states she is alright with taking a shower at home. Patient is alert and orientated to person, place, time and circumstance. Mood is euthymic with congruent affect; clinician notes patient is focused on coloring. Patient denies suicidal and homicidal ideation. Patient denies auditory and visual hallucinations; patient is not demonstrating behaviour what would be congruent to responding to internal stimuli. No delusions are noted. Thought process is organized and linear. Eye contact was well maintained. Intellectual abilities appear to be within average range. Attention and concentration is poor. Insight, judgment, and impulse control is currently poor. 296.80 (F31.9) Unspecified bipolar per history provided by family R/O799.59 (R41.9) Unspecified Neurocognitive Disorder Impression\\plan: Patient is recommended to rescind IVC and is considered psychiatrically cleared for discharge. Patient is recommended to follow up with neurology. Patient has demonstrated behaviours congruent with Dementia. Patient was originally on Depakote and stable for 14 years and then stopped taking it when she was switch to a generic form and she reports cause an allergic reaction. Patient restarted Depakote after 2 weeks off with little observed psychiatric improvements. Patient's medication regiment was adjusted and manic symptoms (elevated mood, no sleeping) have improved; however, possible neurocognitive disorder symptoms (shuffling gait, sudden onset of dystonia) have continued. Dr. Victoria was consulted on the care and management of this patient; attending physician is in agreement with recommendations and disposition - Related Data Allergies/Adverse Reactions: codeine [Codeine] Allergy (Mild, Verified 05/16/15 08:38) Nausea Home Medications: Current Home Medications Atorvastatin Calcium [Lipitor 40 mg Tablet] 40 mg PO QHS 07/01/16 [History] Divalproex Sodium [Depakote ER 250 mg Tablet] 250 mg PO Q12 07/01/16 [History] Glipizide [Glucotrol 5 mg Tablet] 10 mg PO BID 07/01/16 [History] Hydrochlorothiazide 25 mg PO DAILY 07/01/16 [History] Lisinopril [Prinivil 10 mg Tablet] 10 mg PO DAILY 07/01/16 [History] Magnesium Oxide [Mag-Ox 400 mg Tablet] 400 mg PO DAILY 07/01/16 [History] Metformin HCl [Metformin HCl ER] 1,000 mg PO BID 07/01/16 [History] Metoprolol Tartrate [Lopressor 100 mg Tablet] 100 mg PO BID 07/01/16 [History] Potassium Chloride [Klor-Con 10] 10 meq PO DAILY 07/01/16 [History] Past Medical History - Social History Smoking Status: Unknown if Ever Smoked Frequency of alcohol use: None Drug Abuse: None Family History: Reviewed & Not Pertinent Patient has suicidal ideation: No Patient has homicidal ideation: No - Past Medical History Cardiac Medical History: Reports: Hx Hypertension Denies: Hx Coronary Artery Disease, Hx Heart Attack Pulmonary Medical History: Denies: Hx Asthma, Hx Bronchitis, Hx COPD, Hx Pneumonia Neurological Medical History: Denies: Hx Cerebrovascular Accident, Hx Seizures Endocrine Medical History: Reports: Hx Diabetes Mellitus Type 2 Renal/ Medical History: Denies: Hx Peritoneal Dialysis Musculoskeltal Medical History: Denies Hx Arthritis Psychiatric Medical History: Reports: Hx Bipolar Disorder Past Surgical History: Reports: Hx Tubal Ligation, Hx Urinary Tract Surgery. Denies: Hx Hysterectomy - Immunizations Hx Diphtheria, Pertussis, Tetanus Vaccination: Yes Hx Pneumococcal Vaccination: 12/12/13 Physical Exam - Vital signs Vitals: Temp Pulse Resp BP Pulse Ox 98.7 F 90 18 145/86 H 99 06/29/16 03:22 06/29/16 03:22 06/29/16 03:22 06/29/16 03:22 06/29/16 03:22 Course - Vital Signs Vital signs: Temp Pulse Resp BP Pulse Ox 97.9 F 104 H 18 150/86 H 97 07/03/16 06:11 07/03/16 06:11 07/03/16 01:00 07/03/16 06:11 07/03/16 06:11 - Laboratory Result Diagrams: 06/29/16 05:22 06/29/16 05:22 Laboratory results interpreted by me: 06/29/16 06/29/16 05:22 05:22 Hgb 10.2 L Hct 32.2 L MCV 67 L MCH 21.2 L MCHC 31.7 L RDW 16.2 H Monocytes % 14.7 H Glucose 61 L Salicylates < 1.0 L Acetaminophen < 10 L Discharge - Discharge Clinical Impression: Fabienne, UNSPECIFIED NEUROLOGICAL DISORDER, Bipolar 1 disorder with moderate fabienne Condition: Stable Disposition: HOME, SELF-CARE Additional Instructions: Dementia The exam shows a decrease in mental ability called dementia. Signs of dementia include a gradual loss of memory and a decreased ability to reason and solve problems. Personality changes, hostility, lack of self-care, and loss of bladder or bowel control are later signs of dementia. In these later stages, patients may become confused, lost, fearful, or agitated, even in familiar places. Alzheimer's disease is the most common type of dementia. It has no known cause or specific treatment. Other causes include alcohol and drug abuse, medication effects (especially tranquilizers and sleeping pills), strokes, head injuries, and brain tumors. Sometimes severe depression in an elderly person is mistaken for dementia, and this can be treated if recognized. A complete medical evaluation and ongoing care with a doctor is important. Most people with dementia need help or supervision with daily living. Some may be able to live independently with occasional help; others require foster care or even care home placement. Alcohol, sedatives, and antihistamines may make the symptoms worse and should be avoided. Alzheimer's disease support groups are available in some communities and can be very valuable to the entire family. Prescription medication can ease the symptoms of Alzheimer's disease in some patients. Please arrange for medical follow-up. Return here if there is a sudden change in mental function, inability to move an arm or leg, inability to speak, fever, or any other significant change. Bipolar Disorder Bipolar disorder is also called manic-depressive disorder. Depression alternates with brain hyperactivity called fabienne. Each phase lasts from several days to a few weeks. We don't know exactly what causes bipolar disorder , but it's treatable. During the "manic phase," you may feel elated and energetic. You may have racing thoughts, rapid speech, increased activity, and grandiose ideas. During this time, you may not realize how poor your judgement is. Inappropriate spending, drug abuse, excessive alcohol use, marriage problems, and irresponsible sexual behavior are common during the manic phase. During the "depressive phase," you might feel depressed, guilty, worthless , fatigued, and unable to concentrate. You might have thoughts of suicide. Good treatments are available for bipolar disorder. [place] is a classic drug for bipolar disorder, and is still often useful. If the manic phase is very mild, an antidepressant alone can be prescribed. If the manic phase is very severe, an antipsychotic medicine (such as Haldol) may be needed. The treatment must be matched to your symptoms, so it's important to work closely with your psychiatric care provider. Contact your physician, the hospital emergency center, crisis line, or your counsellor if you are losing control or having self-destructive thoughts. HOME CARE INSTRUCTIONS & INFORMATION: Thank you for choosing us for your medical needs. We hope you're satisfied with the care you received. After you leave, you must properly care for your problem and, at the same time, observe its progress. Any condition can change. Some illnesses can change rapidly over hours or days. If your condition worsens, return to the Emergency Department or see your physician promptly. It is recommended you follow up with a neurologist. AT ANY TIME, IF YOUR SYMPTOMS CHANGE SIGNIFICANTLY OR WORSEN OR YOU DEVELOP NEW SYMPTOMS, RETURN TO THE EMERGENCY DEPARTMENT IMMEDIATELY FOR RE-EVALUATION. OUR GOAL IS TO PROVIDE EXCELLENT MEDICAL CARE! WE HOPE THAT WE HAVE MET YOUR EXPECTATIONS DURING YOUR EMERGENCY DEPARTMENT VISIT AND THAT YOU FEEL YOU HAVE RECEIVED EXCELLENT CARE!
[2016-07-03 09:34] VITALS: BP 144/90
[2016-07-03] MEDS: LEVETIRACETAM 500 MG TABLET PO SCH (09:55)
[2016-07-03] MEDS: METFORMIN HCL 500 MG TABLET PO SCH (09:56)
--- NOTE | 2016-07-03 10:26 | ER Document Report ---
Doctor's Note Notes: 07/03/16 10:25 Rounds: Chart reviewed and patient interviewed. Patient is doing well. Vital signs are all normal. Ab studies have been essentially normal. Mental health has assessed the patient feels she can be discharged for further outpatient care. Patient is medically stable for discharge. Daniel Medina M.D.
== END 2016-07-03 10:27 | disposition home or self-care (01) ==
LOC: ER 03:14
DX: F31.9 Bipolar disorder, unspecified (principal); R29.90 Unspecified symptoms and signs involving the nervous system; R41.0 Disorientation, unspecified; M25.559 Pain in unspecified hip; W08.XXXA Fall from other furniture, initial encounter; Y93.89 Activity, other specified; Y92.239 Unspecified place in hospital as the place of occurrence of the external cause; I10 Essential (primary) hypertension; E11.9 Type 2 diabetes mellitus without complications; Z79.899 Other long term (current) drug therapy
CPT/HCPCS: 93005; 99285; 96372; 36415; 80307 ×4; 84703; 85025; 80053; 81001; 80164; 93010; A9270 ×22; J0515; J1200; J1630; J3490 ×2; J2060 ×2; J3486

== ENCOUNTER 2016-07-14 02:03 | Emergency (ER) | payer MEDICARE, MEDICAID ==
[2016-07-14 06:30] VITALS: BP 141/74
[2016-07-14] MEDS ORDERED: LIDOCAINE 5% (700 MG) TRANSDERMAL ADH..PATCH TP ONE (06:33)
--- NOTE | 2016-07-14 06:38 | ER Document Report ---
ED General - General Chief Complaint: Back Pain Stated Complaint: BACK PAIN TRAVEL OUTSIDE OF THE [place] IN LAST 30 DAYS: No - HPI Patient complains to provider of: thoracic back pain Notes: Patient coming in her thoracic back pain ongoing for approximately 1-2 weeks. Patient was recently seen here in ER as a psychiatric patient. Patient states during that time was on the back pain started states she was tied down to the bed this is on the back pain started.. Patient states no relief with Tylenol or Motrin. Patient's and laboratory here in ER. Patient has not followed up her primary care physician. Patient denies any bowel bladder incontinence denies any numbness or tingling - Related Data Allergies/Adverse Reactions: codeine [Codeine] Allergy (Mild, Verified 05/16/15 08:38) Nausea Past Medical History - Social History Smoking Status: Unknown if Ever Smoked Family History: Reviewed & Not Pertinent Patient has suicidal ideation: No Patient has homicidal ideation: No - Past Medical History Cardiac Medical History: Reports: Hx Hypertension Denies: Hx Coronary Artery Disease, Hx Heart Attack Pulmonary Medical History: Denies: Hx Asthma, Hx Bronchitis, Hx COPD, Hx Pneumonia Neurological Medical History: Denies: Hx Cerebrovascular Accident, Hx Seizures Endocrine Medical History: Reports: Hx Diabetes Mellitus Type 2 Renal/ Medical History: Denies: Hx Peritoneal Dialysis Musculoskeltal Medical History: Denies Hx Arthritis Psychiatric Medical History: Reports: Hx Bipolar Disorder Past Surgical History: Reports: Hx Tubal Ligation, Hx Urinary Tract Surgery. Denies: Hx Hysterectomy - Immunizations Hx Diphtheria, Pertussis, Tetanus Vaccination: Yes Hx Pneumococcal Vaccination: 12/12/13 Review of Systems - Review of Systems Constitutional: No symptoms reported EENT: No symptoms reported Cardiovascular: No symptoms reported Respiratory: No symptoms reported Gastrointestinal: No symptoms reported Genitourinary: No symptoms reported Female Genitourinary: No symptoms reported Musculoskeletal: Back pain Skin: No symptoms reported Hematologic/Lymphatic: No symptoms reported Neurological/Psychological: No symptoms reported -: Yes All other systems reviewed and negative Physical Exam - Vital signs Vitals: Temp Pulse Resp BP Pulse Ox 98.5 F 80 20 129/83 H 96 07/14/16 02:11 07/14/16 02:11 07/14/16 02:11 07/14/16 02:11 07/14/16 02:11 Interpretation: Normal - General General appearance: Appears well, Alert - HEENT Head: Normocephalic, Atraumatic Eyes: Normal Pupils: PERRL - Respiratory Respiratory status: No respiratory distress Chest status: Nontender Breath sounds: Normal Chest palpation: Normal - Cardiovascular Rhythm: Regular Heart sounds: Normal auscultation Murmur: No - Abdominal Inspection: Normal Distension: No distension Bowel sounds: Normal Tenderness: Nontender Organomegaly: No organomegaly - Back Back: Normal, Nontender. No: Tender - Extremities General upper extremity: Normal inspection, Nontender, Normal color, Normal ROM , Normal temperature General lower extremity: Normal inspection, Nontender, Normal color, Normal ROM , Normal temperature, Normal weight bearing. No: Sheree's sign - Neurological Neuro grossly intact: Yes Cognition: Normal Orientation: AAOx4 [place] Coma Scale Eye Opening: Spontaneous Nellie Coma Scale Verbal: Oriented Nellie Coma Scale Motor: Obeys Commands Nellie Coma Scale Total: 15 Speech: Normal Motor strength normal: LUE, RUE, LLE, RLE Sensory: Normal - Psychological Associated symptoms: Normal affect, Normal mood - Skin Skin Temperature: Warm Skin Moisture: Dry Skin Color: Normal Course - Re-evaluation Re-evalutation: 07/14/16 07:21 The patient presents with low back pain without signs of spinal cord compression , cauda equina syndrome, infection, aneurysm, or other serious etiology. The patient is neurologically intact. Given the extremely low risk of these diagnoses further testing and evaluation for these possibilities does not appear to be indicated at this time. The patient has been instructed to return if the symptoms worsen or change in any way. .. - Vital Signs Vital signs: Temp Pulse Resp BP Pulse Ox 97.6 F 81 19 141/74 H 97 07/14/16 06:28 07/14/16 06:28 07/14/16 06:28 07/14/16 06:28 07/14/16 06:28 Discharge - Discharge Clinical Impression: Back pain Qualifiers: Back pain location: thoracic back pain Chronicity: unspecified Back pain laterality: bilateral Qualified Code(s): M54.6 - Pain in thoracic spine Condition: Good Disposition: HOME, SELF-CARE Instructions: Ice Packs ([facility]), Warm Packs ([facility]), Stretching Exercises for the Back ([facility]), Upper Back Strain ([facility]) Additional Instructions: Please performed the back stretching exercises as indicated. Along with taking Tylenol and Motrin he may try the [id number] lidocaine patch as prescribed. Return to the ER if symptoms worsen. Prescriptions: Ibuprofen [Motrin 600 Mg Tablet] 600 mg PO TID #15 tablet Lidocaine [Aspercreme] 1 each TP DAILY #20 adh..patch
== END 2016-07-14 06:40 | disposition home or self-care (01) ==
LOC: ER 02:03
DX: M54.6 Pain in thoracic spine (principal); M54.5 Low back pain; I10 Essential (primary) hypertension; E11.9 Type 2 diabetes mellitus without complications; Z88.5 Allergy status to narcotic agent
CPT/HCPCS: 99283

== ENCOUNTER 2016-08-30 04:52 | Emergency (ER) | payer MEDICARE, OTHER, MEDICAID ==
[2016-08-30] MEDS ORDERED: HALOPERIDOL LACTATE INJ 5 MG/1 ML VIAL IM ONE (05:38)
[2016-08-30] MEDS ORDERED: LORAZEPAM INJ 2 MG/1 ML VIAL IM ONE (05:38)
[2016-08-30 06:14] LABS: ABSOLUTE BASOPHILS # (AUTO) 0.1 10^3/uL (0.0-0.2); ABSOLUTE EOSINOPHILS # (AUTO) 0.2 10^3/uL (0.0-0.6); ABSOLUTE LYMPHOCYTES (AUTO) 2.1 10^3/uL (0.5-4.7); ABSOLUTE MONOCYTES (AUTO) 0.9 10^3/uL (0.1-1.4); ABSOLUTE NEUT (AUTO) 4.4 10^3/uL (1.7-8.2); BASOPHILS % (AUTO) 0.9 % (0-2); HEMATOCRIT 35.9 % (36.0-47.0); HEMOGLOBIN 11.2 g/dL (12.0-15.5); HGB HCT DIFFERENCE -2.3; LYMPHOCYTES % (AUTO) 26.9 % (13-45); MEAN CORPUSCULAR HEMOGLOBIN 20.8 pg (27.0-33.4); MEAN CORPUSCULAR HGB CONC 31.1 g/dL (32.0-36.0); MEAN CORPUSCULAR VOLUME 67 fl (80-97); MONOCYTES % (AUTO) 12.1 % (3-13); RED BLOOD COUNT 5.38 10^6/uL (3.72-5.28); RED CELL DISTRIBUTION WIDTH 17.3 % (11.5-14.0); SEGMENTED NEUTROPHILS % (AUTO) 58.1 % (42-78); WHITE BLOOD COUNT 7.6 10^3/uL (4.0-10.5)
[2016-08-30 06:31] LABS: ALANINE AMINOTRANSFERASE 23 U/L (9-52); ALKALINE PHOSPHATASE 87 U/L (38-126); ANION GAP 17 (5-19); ASPARTATE AMINO TRANSFERASE 18 U/L (14-36); BILIRUBIN,DIRECT 0.3 mg/dL (0.0-0.4); BILIRUBIN,TOTAL 0.5 mg/dL (0.2-1.3); BLOOD UREA NITROGEN 17 mg/dL (7-20); CALCIUM 9.7 mg/dL (8.4-10.2); CARBON DIOXIDE 25 mmol/L (22-30); CHLORIDE 103 mmol/L (98-107); CREATININE RESULT 0.78 mg/dL (0.52-1.25); GLUCOSE 125 mg/dL (75-110); POTASSIUM 3.4 mmol/L (3.6-5.0); SODIUM 144.6 mmol/L (137-145); TOTAL PROTEIN 7.4 g/dL (6.3-8.2)
[2016-08-30 06:38] LABS: ALCOHOL < 10 mg/dL (NONE DETECTED)
[2016-08-30 08:16] LABS: APPEARANCE,URINE CLEAR; BILIRUBIN,URINE NEGATIVE (NEGATIVE); GLUCOSE, URINE NEGATIVE (NEGATIVE); KETONES,URINE TRACE mg/dL (NEGATIVE); LEUKOCYTE ESTERASE,URINE NEGATIVE (NEGATIVE); NITRITE,URINE NEGATIVE (NEGATIVE); PROTEIN,URINE NEGATIVE (NEGATIVE); URINE SPECIFIC GRAVITY 1.016
--- NOTE | 2016-08-30 08:29 | ER Document Report ---
ED General - General Chief Complaint: Psych Problem Stated Complaint: IVC WITH PAPERS Time Seen by Provider: 08/30/16 06:11 Mode of Arrival: Medic Information source: Patient Notes: 65-year-old history of psychiatric disorder who has been evaluated here multiple times presents with complaints of aggressive behavior towards family and others TRAVEL OUTSIDE OF THE [place] IN LAST 30 DAYS: No - HPI Onset: Just prior to arrival Onset/Duration: Sudden Quality of pain: No pain Severity: Moderate Pain Level: Denies Associated symptoms: Other Exacerbated by: Denies Relieved by: Denies Similar symptoms previously: Yes Recently seen / treated by doctor: Yes - Related Data Allergies/Adverse Reactions: codeine [Codeine] Allergy (Mild, Verified 08/30/16 06:10) Nausea Past Medical History - Social History Smoking Status: Never Smoker Cigarette use (# per day): No Chew tobacco use (# tins/day): No Smoking Education Provided: No Family History: Reviewed & Not Pertinent - Past Medical History Cardiac Medical History: Reports: Hx Hypertension Denies: Hx Coronary Artery Disease, Hx Heart Attack Pulmonary Medical History: Denies: Hx Asthma, Hx Bronchitis, Hx COPD, Hx Pneumonia Neurological Medical History: Denies: Hx Cerebrovascular Accident, Hx Seizures Endocrine Medical History: Reports: Hx Diabetes Mellitus Type 2 Renal/ Medical History: Denies: Hx Peritoneal Dialysis Musculoskeltal Medical History: Denies Hx Arthritis Psychiatric Medical History: Reports: Hx Bipolar Disorder Past Surgical History: Reports: Hx Tubal Ligation, Hx Urinary Tract Surgery. Denies: Hx Hysterectomy - Immunizations Hx Diphtheria, Pertussis, Tetanus Vaccination: Yes Hx Pneumococcal Vaccination: 12/12/13 Review of Systems - Review of Systems Notes: REVIEW OF SYSTEMS: CONSTITUTIONAL : Denies fever, chills, or sweats. Denies recent illness. EENT: Denies eye, ear, throat, or mouth pain or symptoms. Denies nasal or sinus congestion or discharge. Denies throat, tongue, or mouth swelling or difficulty swallowing. CARDIOVASCULAR: Denies chest pain. Denies palpitations or racing or irregular heart beat. Denies ankle edema. RESPIRATORY: Denies cough, cold, or chest congestion. Denies shortness of breath, difficulty breathing, or wheezing. GASTROINTESTINAL: Denies abdominal pain or distention. Denies nausea, vomiting , or diarrhea. Denies blood in vomitus, stools, or per rectum. Denies black, tarry stools. Denies constipation. GENITOURINARY: Denies difficulty urinating, painful urination, burning, frequency, blood in urine, or discharge. FEMALE GENITOURINARY: Denies vaginal bleeding, heavy or abnormal periods, irregular periods. Denies vaginal discharge or odor. MUSCULOSKELETAL: Denies back or neck pain or stiffness. Denies joint pain or swelling. SKIN: Denies rash, lesions or sores. HEMATOLOGIC : Denies easy bruising or bleeding. LYMPHATIC: Denies swollen, enlarged glands. NEUROLOGICAL: Denies confusion or altered mental status. Denies passing out or loss of consciousness. Denies dizziness or lightheadedness. Denies headache. Denies weakness or paralysis or loss of use of either side. Denies problems with gait or speech. Denies sensory loss, numbness, or tingling. Denies seizures. PSYCHIATRIC: admits to aggressive behavior ALL OTHER SYSTEMS REVIEWED AND NEGATIVE. PHYSICAL EXAMINATION: GENERAL: Well-appearing, well-nourished and in no acute distress. HEAD: Atraumatic, normocephalic. EYES: Pupils equal round and reactive to light, extraocular movements intact, conjunctiva are normal. ENT: Nares patent, oropharynx clear without exudates. Moist mucous membranes. NECK: Normal range of motion, supple without lymphadenopathy LUNGS: Breath sounds clear to auscultation bilaterally and equal. No wheezes rales or rhonchi. HEART: Regular rate and rhythm without murmurs ABDOMEN: Soft, nontender, nondistended abdomen. No guarding, no rebound. No masses appreciated. Female : deferred Musculoskeletal: Normal range of motion, no pitting or edema. No cyanosis. NEUROLOGICAL: Cranial nerves grossly intact. Normal speech, normal gait. Normal sensory, motor exams PSYCH: aggressive, yelling throwing objects at nurses SKIN: Warm, Dry, normal turgor, no rashes or lesions noted. Dictation was performed using [employer] voice recognition software Physical Exam - Vital signs Vitals: Temp Pulse Resp BP Pulse Ox 98.3 F 86 18 153/84 H 96 08/30/16 06:37 08/30/16 06:37 08/30/16 06:37 08/30/16 06:37 08/30/16 06:37 Course - Re-evaluation Re-evalutation: 08/30/16 08:29 Patient's labwork notes no significant abnormality, patient will require mental health evaluation she is other was physically stable - Vital Signs Vital signs: Temp Pulse Resp BP Pulse Ox 98.3 F 86 18 153/84 H 96 08/30/16 06:37 08/30/16 06:37 08/30/16 06:37 08/30/16 06:37 08/30/16 06:37 - Laboratory Result Diagrams: 08/30/16 06:00 08/30/16 06:00 Laboratory results interpreted by me: 08/30/16 08/30/16 08/30/16 06:00 06:00 07:59 RBC 5.38 H Hgb 11.2 L Hct 35.9 L MCV 67 L MCH 20.8 L MCHC 31.1 L RDW 17.3 H Potassium 3.4 L Glucose 125 H Urine Ketones TRACE H Urine Urobilinogen 2.0 H Urine Ascorbic Acid 20 H Salicylates < 1.0 L Acetaminophen < 10 L - EKG Interpretation by Me EKG shows normal: Sinus rhythm, [place], Intervals, QRS Complexes Discharge - Discharge Clinical Impression: Aggressive behavior Condition: Stable Disposition: PSYCH HOSP/UNIT
[2016-08-30 08:33] LABS: URINE BARBITURATES SCREEN NEGATIVE; URINE METHADONE SCREEN NEGATIVE; URINE OPIATES LOW NEGATIVE; URINE PHENCYCLIDINE SCREEN NEGATIVE
--- NOTE | 2016-08-30 10:23 | EKG REPORT ---
SEVERITY:- ABNORMAL ECG - SINUS RHYTHM FIRST DEGREE AV BLOCK LEFT ANTERIOR FASCICULAR BLOCK BORDERLINE PROLONGED QT INTERVAL : Confirmed by: Lulú Wallace MD 30-Aug-2016 10:22:18
[2016-08-30] MEDS ORDERED: LEVETIRACETAM 500 MG TABLET PO SCH (18:45)
[2016-08-30] MEDS ORDERED: RISPERIDONE 0.25 MG TABLET PO ONE (20:00)
[2016-08-30] MEDS ORDERED: LEVETIRACETAM 500 MG TABLET PO ONE (20:00)
[2016-08-30] MEDS: BUSPIRONE HCL 10 MG TABLET PO SCH (20:57)
[2016-08-30] MEDS: CLONIDINE HCL 0.1 MG TABLET PO PRN (20:57)
[2016-08-31] MEDS: LEVETIRACETAM 500 MG TABLET PO SCH ×2 (06:50→18:11)
--- NOTE | 2016-08-31 07:28 | ER Document Report ---
ED Psych Disorder / Suicide - General Chief Complaint: Psych Problem Stated Complaint: IVC WITH PAPERS Time Seen by Provider: 08/30/16 06:11 Mode of Arrival: Medic Information source: Relative, [facility] Records TRAVEL OUTSIDE OF THE [place] IN LAST 30 DAYS: No - HPI Suicide Risk Factors: Bipolar Similar symptoms previously: Yes Recently seen / treated by doctor: Yes Notes: Initial evaluation conducted on 08/30/2016 at 1004. Patient is a 65 year old female who presented to the ED last evening via LE, petitioned for IVC by [facility] worker for history of mental health, delusions, increased aggression, noncompliance with medication, and had been to the ED twice in June 2016 for mental health concerns. Review of chart revealed that on 07/03/16 when patient was last seen in the ED by the [facility] Behavioral Health team medications were adjusted and there was recommendation for a neurology follow up. Attending ED physician reported patient was throwing things at one point. He further reported she was yelling however that is more baseline behavior for her. Patient refused to engage in evaluation. She continued to sleep and when asked questions would shake her head no or say no. She did say she was taking her medications. Patients daughter was present later in the day. She stated last night patient refused to take medications, was throwing things at people in the home, and was yelling. She identified the [facility] worker witnessed most of this and it was only when [facility] worker arrived that patient took any medication. She provided contact information to attending nurse, current medication regimen, and this clinician made a copy of the A paperwork (copy on chart). She identified since patients last discharge in June 2016 daughter has been administering medications, she watches patient take them, and she stated it seems like patient is swallowing them. She stated that patient was changed from Depakote to Keppra the last ED visit. She reported patients PCM is at [facility] , her Psychiatrist is Dr. Hdz at [facility], and she tried to get patient to go to a neurology appointment but patient refused saying she had already been to one (daughter noted no evidence that patient had been to one). She acknowledged patient was started on Trazodone 50MG (1-3 pills) QHS. She further stated typically patient takes one at bedtime, however last evening she gave 3 since patient had refused all other medications. She stated she noticed a change in patients presentation and demeanor about 2 weeks ago. Diagnosis: 296.80 (F31.9) Unspecified Bipolar and Related Disorder Impression/Plan: Recommendation to maintain IVC status. Patient refused medications in the home, became verbally and physically aggressive, resulting in the need for MCM services. Patient has been uncooperative with assessments while in the ED. Specifically this psychiatric assessment she refused to engage , however was no aggressive in any manner. She did require medication and restraints shortly after she first arrived to ED in order to keep herself and others safe. Medication changes are taking place. Will reassess in the morning. Consulted with Dr. Victoria regarding the management and care of patient. ED Doctor in agreement with recommendations. - Related Data Allergies/Adverse Reactions: codeine [Codeine] Allergy (Mild, Verified 08/30/16 06:10) Nausea Home Medications: Current Home Medications Buspirone HCl 5 mg PO QAM 08/30/16 [History] Buspirone HCl 10 mg PO QHS 08/30/16 [History] Glipizide [Glipizide] 10 mg PO BID 08/30/16 [History] Lisinopril [Lisinopril] 10 mg PO QAM 08/30/16 [History] Trazodone HCl 50 mg PO QHS PRN 08/30/16 [History] Past Medical History - General Information source: Patient - Social History Smoking Status: Never Smoker Cigarette use (# per day): No Chew tobacco use (# tins/day): No Family History: Reviewed & Not Pertinent - Past Medical History Cardiac Medical History: Reports: Hx Hypertension Denies: Hx Coronary Artery Disease, Hx Heart Attack Pulmonary Medical History: Denies: Hx Asthma, Hx Bronchitis, Hx COPD, Hx Pneumonia Neurological Medical History: Denies: Hx Cerebrovascular Accident, Hx Seizures Endocrine Medical History: Reports: Hx Diabetes Mellitus Type 2 Renal/ Medical History: Denies: Hx Peritoneal Dialysis Musculoskeltal Medical History: Denies Hx Arthritis Psychiatric Medical History: Reports: Hx Bipolar Disorder Past Surgical History: Reports: Hx Tubal Ligation, Hx Urinary Tract Surgery. Denies: Hx Hysterectomy - Immunizations Hx Diphtheria, Pertussis, Tetanus Vaccination: Yes Hx Pneumococcal Vaccination: 12/12/13 Physical Exam - Vital signs Vitals: Temp Pulse Resp BP Pulse Ox 98.3 F 86 18 153/84 H 96 08/30/16 06:37 08/30/16 06:37 08/30/16 06:37 08/30/16 06:37 08/30/16 06:37 Course - Vital Signs Vital signs: Temp Pulse Resp BP Pulse Ox 98.4 F 79 18 140/78 H 97 08/31/16 04:05 08/31/16 04:05 08/31/16 04:05 08/31/16 04:05 08/31/16 04:05 - Laboratory Result Diagrams: 08/30/16 06:00 08/30/16 06:00 Laboratory results interpreted by me: 08/30/16 08/30/16 08/30/16 06:00 06:00 07:59 RBC 5.38 H Hgb 11.2 L Hct 35.9 L MCV 67 L MCH 20.8 L MCHC 31.1 L RDW 17.3 H Potassium 3.4 L Glucose 125 H Urine Ketones TRACE H Urine Urobilinogen 2.0 H Urine Ascorbic Acid 20 H Salicylates < 1.0 L Acetaminophen < 10 L Discharge - Discharge Clinical Impression: Aggressive behavior Condition: Stable Disposition: PSYCH HOSP/UNIT
[2016-08-31] MEDS ORDERED: RISPERIDONE 0.25 MG TABLET PO SCH ×2 (08:00→15:00)
[2016-08-31] MEDS: RISPERIDONE 0.25 MG TABLET PO SCH (10:05)
--- NOTE | 2016-08-31 10:33 | ER Document Report ---
Doctor's Note Notes: 08/31/16 10:32 Patient is sitting up in the chair this morning looking at a magazine and drinking a cup of fluids. She is not agitated. Plan is for psychiatry to reassess this morning recommended disposition.
[2016-08-31] MEDS ORDERED: DIPHENHYDRAMINE HCL 50 MG CAPSULE PO ONE (22:42)
[2016-08-31] MEDS: BUSPIRONE HCL 10 MG TABLET PO SCH (23:01)
[2016-08-31] MEDS: CLONIDINE HCL 0.1 MG TABLET PO PRN (23:01)
[2016-09-01] MEDS ORDERED: HALOPERIDOL LACTATE INJ 5 MG/1 ML VIAL IM ONE (05:53)
[2016-09-01] MEDS ORDERED: LORAZEPAM INJ 2 MG/1 ML VIAL IM ONE (05:54)
--- NOTE | 2016-09-01 09:50 | ER Document Report ---
Doctor's Note Notes: This is a 65-year-old female with a history of hypertension, type 2 diabetes and bipolar affective disorder who was brought into the emergency room 2016 with aggressive behavior towards family members. Patient's labs and vital signs have been stable she is currently undergoing psychiatric evaluation. Patient does have mildly elevated blood pressure and will restart her blood pressure medicines. She is a type II diabetic and is on glipizide, will restart. Physical exam, the patient is resting. She did require Haldol and Ativan at 6 AM agitation. Plan is for continuing psychiatric evaluation. 09/01/16 10:46 09/01/16 15:57 Patient is currently stable and being transferred for inpatient psychiatric care. Her repeat CT scan of the head was normal. Her vital signs have been stable
[2016-09-01] MEDS ORDERED: METOPROLOL TARTRATE 100 MG TABLET PO SCH (10:00)
[2016-09-01] MEDS ORDERED: LISINOPRIL 10 MG TABLET PO SCH (10:00)
[2016-09-01] MEDS ORDERED: GLIPIZIDE 10 MG TABLET PO SCH (10:00)
[2016-09-01] MEDS: CLONIDINE HCL 0.1 MG TABLET PO PRN (11:36)
[2016-09-01] MEDS: LEVETIRACETAM 500 MG TABLET PO SCH (11:37)
[2016-09-01] MEDS: RISPERIDONE 0.25 MG TABLET PO SCH (11:37)
--- NOTE | 2016-09-01 12:57 | RADIOLOGY REPORT (SQ) ---
EXAM DESCRIPTION: CT HEAD WITHOUT COMPLETED DATE/TIME: 09/01/2016 12:33 pm REASON FOR STUDY: change in mental status COMPARISON: None. TECHNIQUE: Axial images acquired through the brain without intravenous contrast. Images reviewed wi th bone, brain and subdural windows. Images stored on PACS. All CT scanners at this facility use dose modulation, iterative reconstruction, and/or weight based d osing when appropriate to reduce radiation dose to as low as reasonably achievable (ALARA). [facility]: Dose Right [facility]: CareDose [facility]: Dose Right [facility]: Teradose 4D [facility]: [employer] RADIATION DOSE: Up-to-date CT equipment and radiation dose reduction techniques were employed. CTDIv ol: 64.6 mGy. DLP: 1034 mGy-cm. mGy. LIMITATIONS: None. FINDINGS: VENTRICLES: Normal size and contour. CEREBRUM: No masses. No hemorrhage. No midline shift. Normal sanchez/white matter differentiation. N o evidence for acute infarction. CEREBELLUM: No masses. No hemorrhage. No alteration of density. No evidence for acute infarction. EXTRAAXIAL SPACES: No fluid collections. No masses. ORBITS AND GLOBE: No intra- or extraconal masses. Normal contour of globe without masses. CALVARIUM: No fracture. PARANASAL SINUSES: No fluid or mucosal thickening. SOFT TISSUES: No mass or hematoma. OTHER: No other significant finding. IMPRESSION: NORMAL BRAIN CT WITHOUT CONTRAST. TECHNICAL DOCUMENTATION: JOB ID: [id number] Quality ID # [id number]: Final reports with documentation of one or more dose reduction techniques (e.g., Au tomated exposure control, adjustment of the mA and/or kV according to patient size, use of iterative reconstruction technique) 2010 [employer]- All Rights Reserved
[2016-09-01 17:14] VITALS: BP 128/83
== END 2016-09-01 16:30 ==
LOC: ER 04:52
DX: F91.9 Conduct disorder, unspecified (principal); Z79.899 Other long term (current) drug therapy; I10 Essential (primary) hypertension; E11.9 Type 2 diabetes mellitus without complications; F31.9 Bipolar disorder, unspecified
CPT/HCPCS: 93005; 99285; 96372; 36415; 80307 ×4; 85025; 80053; 81001; 70450; 93010; A9270 ×10; J1630 ×2; J2060 ×2; J3490

== ENCOUNTER 2016-12-23 21:03 | Emergency (ER) | payer MEDICARE, MEDICAID ==
--- NOTE | 2016-12-23 21:31 | ER Document Report ---
ED Psych Disorder / Suicide - General Chief Complaint: Altered Mental Status Stated Complaint: ALTERED MENTAL STATUS Notes: The patient is a 66-year-old female, past medical history bipolar, diabetes, HTN , presents with altered mental status for the past week. According to son at bedside, the patient will not speak or take her meds over the past week. She lives at a halfway. While in the ER, patient refuses to take her medications , even when crushed up in applesauce. She refuses to speak or provide any additional history. TRAVEL OUTSIDE OF THE [place] IN LAST 30 DAYS: No - Related Data Allergies/Adverse Reactions: codeine [Codeine] Allergy (Mild, Verified 12/23/16 22:04) Nausea Home Medications: Current Home Medications Cholecalciferol (Vitamin D3) [Vitamin D3 5000 unit Capsule] 5,000 unit PO [History] [place] Carbonate 300 mg PO BID 12/23/16 [History] Magnesium Gluconate [Magimin] 500 mg PO BID 12/23/16 [History] Risperidone [Risperdal 0.25 mg Tablet] 0.25 mg PO QAM 12/23/16 [History] Risperidone [Risperdal] 0.5 mg PO QHS 12/23/16 [History] Simvastatin 40 mg PO DAILY 12/23/16 [History] Past Medical History - General Information source: Relative Cannot obtain history due to: Altered mental status - Social History Smoking Status: Unknown if Ever Smoked Chew tobacco use (# tins/day): No Frequency of alcohol use: None Drug Abuse: None Family History: Reviewed & Not Pertinent - Past Medical History Cardiac Medical History: Reports: Hx Hypertension Denies: Hx Coronary Artery Disease, Hx Heart Attack Pulmonary Medical History: Denies: Hx Asthma, Hx Bronchitis, Hx COPD, Hx Pneumonia Neurological Medical History: Denies: Hx Cerebrovascular Accident, Hx Seizures Endocrine Medical History: Reports: Hx Diabetes Mellitus Type 2 Renal/ Medical History: Denies: Hx Peritoneal Dialysis Musculoskeltal Medical History: Denies Hx Arthritis Psychiatric Medical History: Reports: Hx Bipolar Disorder Past Surgical History: Reports: Hx Tubal Ligation, Hx Urinary Tract Surgery. Denies: Hx Hysterectomy - Immunizations Hx Diphtheria, Pertussis, Tetanus Vaccination: Yes Hx Pneumococcal Vaccination: 12/12/13 Review of Systems - Review of Systems -: Yes ROS unobtainable due to patient's medical condition Physical Exam - Vital signs Vitals: Temp Pulse Resp BP Pulse Ox 98.7 F 105 H 20 213/109 H 96 12/23/16 21:18 12/23/16 21:18 12/23/16 21:18 12/23/16 21:18 12/23/16 21:18 - Notes Notes: PHYSICAL EXAMINATION: GENERAL: In no acute distress. HEAD: Atraumatic, normocephalic. EYES: Pupils equal round and reactive to light, extraocular movements intact, sclera anicteric, conjunctiva are normal. ENT: nares patent, oropharynx clear without exudates. Moist mucous membranes. NECK: Normal range of motion, supple without lymphadenopathy LUNGS: Breath sounds clear to auscultation bilaterally and equal. No wheezes rales or rhonchi. HEART: Regular rate and rhythm without murmurs ABDOMEN: Soft, nontender, normoactive bowel sounds. No guarding, no rebound. No masses appreciated. EXTREMITIES: Normal range of motion, no pitting or edema. No cyanosis. NEUROLOGICAL: Cranial nerves grossly intact. Normal gait. Normal sensory and motor exams. PSYCH: Uncooperative. Mute. SKIN: Warm, Dry, normal turgor, no rashes or lesions noted. Course - Re-evaluation Re-evalutation: 12/23/16 23:07 Interacting with this patient from prior ER visits, she is normally pleasantly manic. Today she is mute and stoic, almost catatonic. She is refusing applesauce with her meds mixed into it. Due to her hypertension, will place a clonidine patch on patient. Her CT head, chest x-ray and labs are all unremarkable. Will have mental health evaluate patient in the morning for further recommendations. - Vital Signs Vital signs: Temp Pulse Resp BP Pulse Ox 98.7 F 105 H 20 213/109 H 96 12/23/16 21:18 12/23/16 21:18 12/23/16 21:18 12/23/16 21:18 12/23/16 21:18 - Laboratory Result Diagrams: 12/23/16 21:37 12/23/16 21:37 Laboratory results interpreted by me: 12/23/16 12/23/16 12/23/16 21:37 21:37 21:37 RBC 5.35 H Hgb 11.5 L MCV 69 L MCH 21.5 L MCHC 31.4 L RDW 16.5 H Potassium 3.3 L Glucose 289 H POC Glucose Urine Protein 30 H Urine Glucose (UA) >=500 H Urine Blood SMALL H Urine Urobilinogen 4.0 H Salicylates < 1.0 L Acetaminophen < 10 L 12/23/16 22:10 RBC Hgb MCV MCH MCHC RDW Potassium Glucose POC Glucose 277 H Urine Protein Urine Glucose (UA) Urine Blood Urine Urobilinogen Salicylates Acetaminophen - Diagnostic Test Radiology reviewed: Image reviewed, Reports reviewed Radiology results interpreted by me: CT Head: NAD CXR: NAD - EKG Interpretation by Me EKG shows normal: Sinus rhythm, Intervals, ST-T Waves Rate: Normal [place]/QRS: LAHB/LAFB Voltage: Consistant with LVH When compared to previous EKG there are: No significant change Discharge - Discharge Clinical Impression: Noncompliance with medication regimen Altered mental status Qualifiers: Altered mental status type: unspecified Qualified Code(s): R41.82 - Altered mental status, unspecified Condition: Stable Disposition: PSYCH HOSP/UNIT
[2016-12-23 22:11] LABS: ABSOLUTE EOSINOPHILS # (AUTO) 0.1 10^3/uL (0.0-0.6); ABSOLUTE LYMPHOCYTES (AUTO) 1.6 10^3/uL (0.5-4.7); ABSOLUTE MONOCYTES (AUTO) 0.6 10^3/uL (0.1-1.4); ABSOLUTE NEUT (AUTO) 2.5 10^3/uL (1.7-8.2); BASOPHILS % (AUTO) 0.8 % (0-2); EOSINOPHILS % (AUTO) 2.9 % (0-6); HEMATOCRIT 36.7 % (36.0-47.0); HEMOGLOBIN 11.5 g/dL (12.0-15.5); HGB HCT DIFFERENCE -2.2; LYMPHOCYTES % (AUTO) 32.8 % (13-45); MEAN CORPUSCULAR HEMOGLOBIN 21.5 pg (27.0-33.4); MEAN CORPUSCULAR HGB CONC 31.4 g/dL (32.0-36.0); MEAN CORPUSCULAR VOLUME 69 fl (80-97); MONOCYTES % (AUTO) 12.7 % (3-13); RED BLOOD COUNT 5.35 10^6/uL (3.72-5.28); RED CELL DISTRIBUTION WIDTH 16.5 % (11.5-14.0); SEGMENTED NEUTROPHILS % (AUTO) 50.8 % (42-78)
[2016-12-23 22:12] LABS: APPEARANCE,URINE SLIGHTLY-CLOUDY; BILIRUBIN,URINE NEGATIVE (NEGATIVE); GLUCOSE, URINE >=500 mg/dL (NEGATIVE); KETONES,URINE NEGATIVE (NEGATIVE); LEUKOCYTE ESTERASE,URINE NEGATIVE (NEGATIVE); NITRITE,URINE NEGATIVE (NEGATIVE); PROTEIN,URINE 30 mg/dL (NEGATIVE); URINE SPECIFIC GRAVITY 1.032
[2016-12-23 22:15] LABS: ALANINE AMINOTRANSFERASE 29 U/L (9-52); ALKALINE PHOSPHATASE 82 U/L (38-126); ANION GAP 14 (5-19); ASPARTATE AMINO TRANSFERASE 16 U/L (14-36); BILIRUBIN,DIRECT 0.4 mg/dL (0.0-0.4); BILIRUBIN,TOTAL 0.5 mg/dL (0.2-1.3); BLOOD UREA NITROGEN 11 mg/dL (7-20); CALCIUM 9.6 mg/dL (8.4-10.2); CARBON DIOXIDE 29 mmol/L (22-30); CHLORIDE 100 mmol/L (98-107); CREATINE KINASE 121 U/L (30-135); CREATININE RESULT 0.73 mg/dL (0.52-1.25); GLUCOSE 289 mg/dL (75-110); POTASSIUM 3.3 mmol/L (3.6-5.0); TOTAL PROTEIN 6.8 g/dL (6.3-8.2)
[2016-12-23 22:17] LABS: ALCOHOL < 10 mg/dL (NONE DETECTED)
[2016-12-23 22:21] LABS: URINE BARBITURATES SCREEN NEGATIVE; URINE METHADONE SCREEN NEGATIVE; URINE OPIATES LOW NEGATIVE; URINE PHENCYCLIDINE SCREEN NEGATIVE
--- NOTE | 2016-12-23 22:35 | RADIOLOGY REPORT (SQ) ---
EXAM DESCRIPTION: CT HEAD WITHOUT COMPLETED DATE/TIME: 12/23/2016 10:18 pm REASON FOR STUDY: AMS, HTN COMPARISON: 09/01/2016 TECHNIQUE: Axial images acquired through the brain without intravenous contrast. Images reviewed wi th bone, brain and subdural windows. Images stored on PACS. All CT scanners at this facility use dose modulation, iterative reconstruction, and/or weight based d osing when appropriate to reduce radiation dose to as low as reasonably achievable (ALARA). [facility]: Dose Right [facility]: CareDose [facility]: Dose Right [facility]: Teradose 4D [facility]: Smart Ufora RADIATION DOSE: Up-to-date CT equipment and radiation dose reduction techniques were employed. CTDIv ol: 64.6 mGy. DLP: 1163 mGy-cm. mGy. LIMITATIONS: None. FINDINGS: VENTRICLES: Normal size and contour. CEREBRUM: No masses. No hemorrhage. No midline shift. No evidence for acute infarction. Normal gra y/white matter differentiation. No areas of low density in the white matter. CEREBELLUM: No masses. No hemorrhage. No alteration of density. No evidence for acute infarction. EXTRAAXIAL SPACES: No fluid collections. No masses. ORBITS AND GLOBE: No intra- or extraconal masses. Normal contour of globe without masses. CALVARIUM: No fracture. PARANASAL SINUSES: No fluid or mucosal thickening. SOFT TISSUES: No mass or hematoma. OTHER: No other significant finding. IMPRESSION: No acute intracranial findings. EVIDENCE OF ACUTE STROKE: NO. COMMENT: Quality ID # [id number]: Final reports with documentation of one or more dose reduction techniques (e.g., Automated exposure control, adjustment of the mA and/or kV according to patient size, use of iterative reconstruction technique) TECHNICAL DOCUMENTATION: JOB ID: [id number] [email or web address]- All Rights Reserved
--- NOTE | 2016-12-23 22:38 | RADIOLOGY REPORT (SQ) ---
EXAM DESCRIPTION: CHEST SINGLE VIEW COMPLETED DATE/TIME: 12/23/2016 10:20 pm REASON FOR STUDY: AMS COMPARISON: 10/25/2014. EXAM PARAMETERS: NUMBER OF VIEWS: One view. TECHNIQUE: Single frontal radiographic view of the chest acquired. RADIATION DOSE: NA LIMITATIONS: None. FINDINGS: LUNGS AND PLEURA: Mild chronic interstitial reticular nodularity without significant inter cally change compared with prior exam, 10/25/2014. MEDIASTINUM AND HILAR STRUCTURES: No masses. Contour normal. HEART AND VASCULAR STRUCTURES: Heart normal in size. Normal vasculature. BONES: No acute findings. HARDWARE: None in the chest. OTHER: No other significant finding. IMPRESSION: No acute cardiopulmonary disease. Stable chronic interstitial disease and/ or old granu lomatous disease pattern. TECHNICAL DOCUMENTATION: JOB ID: [id number]
[2016-12-23] MEDS ORDERED: RISPERIDONE 0.25 MG TABLET PO SCH (23:00)
[2016-12-23] MEDS ORDERED: CLONIDINE 0.1 MG/24 HR PATCH.TDWK TD ONE (23:01)
--- NOTE | 2016-12-24 08:14 | EKG REPORT ---
SEVERITY:- ABNORMAL ECG - SINUS RHYTHM LEFT ANTERIOR FASCICULAR BLOCK LEFT VENTRICULAR HYPERTROPHY BORDERLINE PROLONGED QT INTERVAL : Confirmed by: Reji Hogue MD 24-Dec-2016 08:13:50
--- NOTE | 2016-12-24 10:13 | ER Document Report ---
Doctor's Note Notes: 12/24/16 10:12 Rounds: Chart reviewed and attempted to interview patient. Patient has a history of bipolar disorder and is being evaluated for altered mental status. Her workup has been essentially normal, including a negative CT scan of her head. [facility] [place] [facility]. Patient attempts to answer my questions, but it is very difficult to understand what she is saying. Reportedly, patient is refusing to take her medications. Vital signs are essentially normal. Labs are essentially normal except for blood sugar that has been in the 200s. Patient appears to be medically stable for transfer or discharge. Daniel Medina MD
[2016-12-24] MEDS: RISPERIDONE 0.25 MG TABLET PO SCH (13:30)
[2016-12-24] MEDS: HYDROCHLOROTHIAZIDE 25 MG TABLET PO SCH (13:30)
[2016-12-24] MEDS: METOPROLOL TARTRATE 100 MG TABLET PO SCH ×2 (13:30→20:30)
[2016-12-24] MEDS: METFORMIN HCL 500 MG TABLET PO SCH (13:30)
[2016-12-24] MEDS: MAGNESIUM OXIDE 400 MG TABLET PO SCH (13:30)
[2016-12-24] MEDS: GLIPIZIDE 5 MG TABLET PO SCH (13:30)
[2016-12-24] MEDS: SIMVASTATIN 40 MG TABLET PO SCH (13:30)
[2016-12-24] MEDS: LISINOPRIL 10 MG TABLET PO SCH (13:30)
[2016-12-24] MEDS: LITHIUM CARBONATE 300 MG CAPSULE PO SCH (13:30)
[2016-12-24] MEDS ORDERED: DIPHENHYDRAMINE HCL 50 MG/ML VIAL IM ONE (20:15)
[2016-12-24] MEDS ORDERED: HALOPERIDOL LACTATE INJ 5 MG/1 ML VIAL IM ONE (20:15)
[2016-12-24] MEDS ORDERED: MIDAZOLAM 2 MG/2 ML INJ IM ONE (20:15)
[2016-12-25] MEDS: GLIPIZIDE 5 MG TABLET PO SCH ×2 (09:55→18:10)
[2016-12-25] MEDS: RISPERIDONE 0.25 MG TABLET PO SCH (09:56)
[2016-12-25] MEDS: METFORMIN HCL 500 MG TABLET PO SCH ×2 (09:56→18:11)
[2016-12-25] MEDS: DOCUSATE SODIUM 100 MG CAPSULE PO SCH ×2 (09:57→18:10)
[2016-12-25] MEDS: LITHIUM CARBONATE 300 MG CAPSULE PO SCH ×2 (09:57→18:11)
[2016-12-25] MEDS: MAGNESIUM OXIDE 400 MG TABLET PO SCH ×2 (09:58→18:11)
[2016-12-25] MEDS: LISINOPRIL 10 MG TABLET PO SCH (09:58)
[2016-12-25] MEDS: METOPROLOL TARTRATE 100 MG TABLET PO SCH ×2 (09:59→23:55)
[2016-12-25] MEDS: HYDROCHLOROTHIAZIDE 25 MG TABLET PO SCH (09:59)
[2016-12-25] MEDS ORDERED: CLONIDINE 0.2 MG/24 HR PATCH.TDWK TD SCH (11:30)
[2016-12-25] MEDS ORDERED: CLONIDINE 0.2 MG/24 HR PATCH.TDWK TD ONE (14:08)
[2016-12-25] MEDS: OLANZAPINE INJ/PF 10 MG SDV IM SCH (15:25)
[2016-12-25] MEDS: SIMVASTATIN 40 MG TABLET PO SCH (18:10)
--- NOTE | 2016-12-25 18:31 | ER Document Report ---
Doctor's Note Notes: 12/25/16 18:30 66-year-old female under IVC at [facility] ER due to a bipolar episode, possibly related to medication noncompliance over the course of multiple days. Medication as recorded. Labs as recorded. Vital signs are stable. Awaiting placement. Patient is in no acute distress at this time.
[2016-12-26] MEDS ORDERED: MIDAZOLAM 2 MG/2 ML INJ IM ONE (00:30)
[2016-12-26] MEDS ORDERED: DIPHENHYDRAMINE HCL 50 MG/ML VIAL IM ONE (00:30)
[2016-12-26] MEDS ORDERED: HALOPERIDOL LACTATE INJ 5 MG/1 ML VIAL IM ONE ×2 (00:31→18:45)
[2016-12-26] MEDS: METOPROLOL TARTRATE 100 MG TABLET PO SCH ×2 (10:00→22:00)
[2016-12-26] MEDS: METFORMIN HCL 500 MG TABLET PO SCH ×2 (10:00→18:00)
[2016-12-26] MEDS: HYDROCHLOROTHIAZIDE 25 MG TABLET PO SCH (10:00)
[2016-12-26] MEDS: DOCUSATE SODIUM 100 MG CAPSULE PO SCH ×2 (10:00→18:00)
[2016-12-26] MEDS: GLIPIZIDE 5 MG TABLET PO SCH ×2 (10:00→18:00)
[2016-12-26] MEDS: LISINOPRIL 10 MG TABLET PO SCH (10:00)
[2016-12-26] MEDS: SIMVASTATIN 40 MG TABLET PO SCH (10:00)
[2016-12-26] MEDS: MAGNESIUM OXIDE 400 MG TABLET PO SCH ×2 (10:00→18:00)
[2016-12-26] MEDS: LITHIUM CARBONATE 300 MG CAPSULE PO SCH ×2 (10:00→18:00)
--- NOTE | 2016-12-26 11:12 | ER Document Report ---
Doctor's Note Notes: 12/26/16 11:09 Medical rounds: Chart reviewed and patient interviewed briefly. Patient continues to be hypertensive, but this is improving now probably because she had been noncompliant with her meds. Will continue present medical therapy and observe. Laboratory values appear to be satisfactory. Patient is alert, oriented, and conversant. She has no specific somatic complaint. Nursing staff reports that she is refusing to take her p.o. meds this morning. Her lithium level is noted to be subtherapeutic. Awaiting recommendations from psych. Patient is medically stable at this time.
[2016-12-26] MEDS: OLANZAPINE INJ/PF 10 MG SDV IM SCH (11:26)
[2016-12-26] MEDS ORDERED: OLANZAPINE INJ/PF 10 MG SDV IM ONE (16:14)
[2016-12-26] MEDS ORDERED: CLONIDINE 0.2 MG/24 HR PATCH.TDWK TD ONE (16:22)
[2016-12-26] MEDS: BENZTROPINE MESYLATE INJ 2 MG/2 ML AMPULE IM SCH (18:35)
[2016-12-26] MEDS ORDERED: BENZTROPINE MESYLATE INJ 2 MG/2 ML AMPULE IM ONE (18:45)
[2016-12-26] MEDS ORDERED: ACETAMINOPHEN 325 MG TABLET PO ONE (21:46)
[2016-12-27] MEDS: HALOPERIDOL LACTATE INJ 5 MG/1 ML VIAL IM SCH ×3 (01:45→12:05)
[2016-12-27] MEDS: LITHIUM CARBONATE 300 MG CAPSULE PO SCH (11:33)
[2016-12-27] MEDS: OLANZAPINE INJ/PF 10 MG SDV IM SCH (11:33)
[2016-12-27] MEDS: MAGNESIUM OXIDE 400 MG TABLET PO SCH (11:34)
[2016-12-27] MEDS: SIMVASTATIN 40 MG TABLET PO SCH (11:34)
[2016-12-27] MEDS: METFORMIN HCL 500 MG TABLET PO SCH (11:34)
[2016-12-27] MEDS: GLIPIZIDE 5 MG TABLET PO SCH (11:35)
[2016-12-27] MEDS: HYDROCHLOROTHIAZIDE 25 MG TABLET PO SCH (11:35)
[2016-12-27] MEDS: LISINOPRIL 10 MG TABLET PO SCH (11:35)
[2016-12-27] MEDS: BENZTROPINE MESYLATE INJ 2 MG/2 ML AMPULE IM SCH (11:35)
[2016-12-27] MEDS: DOCUSATE SODIUM 100 MG CAPSULE PO SCH (11:35)
[2016-12-27] MEDS: METOPROLOL TARTRATE 100 MG TABLET PO SCH (11:36)
[2016-12-27 12:57] VITALS: BP 121/65
== END 2016-12-27 13:15 ==
LOC: ER 21:03
DX: R41.82 Altered mental status, unspecified (principal); F31.9 Bipolar disorder, unspecified; I10 Essential (primary) hypertension; E11.9 Type 2 diabetes mellitus without complications; Z91.14 Patient's other noncompliance with medication regimen; Z98.51 Tubal ligation status; Z88.6 Allergy status to analgesic agent
CPT/HCPCS: 93005; 99285; 96372; 36415; 82962; 80307 ×4; 82550; 80178; 85025; 80053; 81001; 84484; 71010; 70450; 93010; A9270 ×24; J2250 ×2; J0515 ×2; J1200 ×2; J1630 ×3; J3490 ×5

== ENCOUNTER 2017-02-21 02:57 | Emergency (ER) | payer MEDICARE, MEDICAID ==
[2017-02-21] MEDS ORDERED: HALOPERIDOL LACTATE INJ 5 MG/1 ML VIAL IM ONE ×2 (03:07→03:44)
[2017-02-21] MEDS ORDERED: MIDAZOLAM 2 MG/2 ML INJ IM ONE ×2 (03:07→05:59)
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
[2017-02-21 03:51] LABS: ABSOLUTE BASOPHILS # (AUTO) 0.1 10^3/uL (0.0-0.2); ABSOLUTE EOSINOPHILS # (AUTO) 0.2 10^3/uL (0.0-0.6); ABSOLUTE LYMPHOCYTES (AUTO) 2.2 10^3/uL (0.5-4.7); ABSOLUTE MONOCYTES (AUTO) 1.1 10^3/uL (0.1-1.4); ABSOLUTE NEUT (AUTO) 4.5 10^3/uL (1.7-8.2); BASOPHILS % (AUTO) 1.2 % (0-2); EOSINOPHILS % (AUTO) 2.2 % (0-6); HEMATOCRIT 36.5 % (36.0-47.0); HEMOGLOBIN 11.6 g/dL (12.0-15.5); LYMPHOCYTES % (AUTO) 27.5 % (13-45); MEAN CORPUSCULAR HEMOGLOBIN 21.4 pg (27.0-33.4); MEAN CORPUSCULAR HGB CONC 31.7 g/dL (32.0-36.0); MEAN CORPUSCULAR VOLUME 67 fl (80-97); MONOCYTES % (AUTO) 13.6 % (3-13); PLATELET COUNT 193 10^3/uL (150-450); RED BLOOD COUNT 5.42 10^6/uL (3.72-5.28); RED CELL DISTRIBUTION WIDTH 16.2 % (11.5-14.0); SEGMENTED NEUTROPHILS % (AUTO) 55.5 % (42-78); TOTAL CELLS COUNTED % (AUTO) 100 %
[2017-02-21 04:09] LABS: ALANINE AMINOTRANSFERASE 38 U/L (9-52); ALBUMIN 4.1 g/dL (3.5-5.0); ALKALINE PHOSPHATASE 83 U/L (38-126); ANION GAP 18 (5-19); ASPARTATE AMINO TRANSFERASE 29 U/L (14-36); BILIRUBIN,DIRECT 0.4 mg/dL (0.0-0.4); BILIRUBIN,TOTAL 0.7 mg/dL (0.2-1.3); BLOOD UREA NITROGEN 29 mg/dL (7-20); CALCIUM 9.5 mg/dL (8.4-10.2); CARBON DIOXIDE 24 mmol/L (22-30); CHLORIDE 103 mmol/L (98-107); GLUCOSE 361 mg/dL (75-110); POTASSIUM 3.3 mmol/L (3.6-5.0); SODIUM 144.7 mmol/L (137-145)
[2017-02-21 04:12] LABS: ACETAMINOPHEN < 10 ug/mL (10-30); ALCOHOL < 10 mg/dL (NONE DETECTED); SALICYLATE < 1.0 mg/dL (2.0-20.0)
[2017-02-21] MEDS ORDERED: INSULIN REG, HUMAN 100 UNIT/ML 3 ML VIAL (PYX) SUBCUT ONE (06:00)
--- NOTE | 2017-02-21 08:43 | EKG REPORT ---
SEVERITY:- ABNORMAL ECG - SINUS TACHYCARDIA ATRIAL PREMATURE COMPLEX LAD, CONSIDER LEFT ANTERIOR FASCICULAR BLOCK : Confirmed by: Jack Neal 21-Feb-2017 08:42:27
--- NOTE | 2017-02-21 09:57 | ER Document Report ---
Doctor's Note Notes: 02/21/17 09:56 66-year-old female presenting overnight with IVC paperwork with some suicidal ideations, noncompliance with medications, with signs and symptoms of esau. Patient does have a history of diabetes. Patient's heart rate is slightly elevated. Glucose as recorded. Patient does have a history again of diabetes. We are waiting for psychiatric evaluation. We will place the patient on her home medications. I will also order a level for her lithium.
[2017-02-21] MEDS ORDERED: RISPERIDONE 0.25 MG TABLET PO PRN (09:59)
[2017-02-21] MEDS ORDERED: LEVETIRACETAM 500 MG TABLET PO SCH (10:00)
[2017-02-21] MEDS ORDERED: LEVETIRACETAM XR 500 MG TAB.SR.24H PO SCH (10:30)
[2017-02-21] MEDS ORDERED: LEVETIRACETAM XR 500 MG TAB.SR.24H PO ONE (11:00)
[2017-02-21 11:01] LABS: URINE AMPHETAMINES SCREEN NEGATIVE; URINE BARBITURATES SCREEN NEGATIVE; URINE BENZODIAZEPINES SCREEN UNCONFIRMED POSITIVE; URINE COCAINE SCREEN NEGATIVE; URINE MARIJUANA (THC) SCREEN NEGATIVE; URINE METHADONE SCREEN NEGATIVE; URINE PHENCYCLIDINE SCREEN NEGATIVE
[2017-02-21] MEDS: BUSPIRONE HCL 10 MG TABLET PO SCH ×2 (11:05→18:55)
[2017-02-21] MEDS ORDERED: GLUCAGON,HUMAN RECOMB 1 MG INJ IM PRN (11:08)
[2017-02-21] MEDS ORDERED: DEXTROSE 50%-WATER 25 GM/50 ML DISP.SYRIN IV PRN ×2 (11:08)
[2017-02-21] MEDS ORDERED: DEXTROSE 40% GEL 15 GM TUBE PO PRN ×2 (11:08)
[2017-02-21] MEDS: LEVETIRACETAM XR 500 MG TAB.SR.24H PO SCH (22:24)
[2017-02-21 23:29] LABS: AMORPHOUS SEDIMENT,URINE TRACE /HPF; APPEARANCE,URINE TURBID; BILIRUBIN,URINE NEGATIVE (NEGATIVE); COLOR,URINE YELLOW; GLUCOSE, URINE >=500 mg/dL (NEGATIVE); KETONES,URINE 20 mg/dL (NEGATIVE); LEUKOCYTE ESTERASE,URINE SMALL (NEGATIVE); NITRITE,URINE NEGATIVE (NEGATIVE); PROTEIN,URINE 30 mg/dL (NEGATIVE); URINE SPECIFIC GRAVITY 1.031
[2017-02-22] MEDS: BUSPIRONE HCL 10 MG TABLET PO SCH ×2 (10:42→18:30)
[2017-02-22] MEDS: LEVETIRACETAM XR 500 MG TAB.SR.24H PO SCH ×2 (11:00→22:56)
[2017-02-22] MEDS: INSULIN REG, HUMAN 100 UNIT/ML 3 ML VIAL (PYX) SUBCUT PRN (12:10)
--- NOTE | 2017-02-22 18:54 | ER Document Report ---
Doctor's Note Notes: 02/22/17 18:51 Chart reviewed. Patient has been evaluated by psychiatry. If she remains stable tonight, they will consider discharge tomorrow. Patient herself has no complaints. Accu-Cheks are being monitored. [place] level ordered yesterday was nontoxic less than 0.2
[2017-02-22] MEDS ORDERED: LEVETIRACETAM 500 MG TABLET PO ONE (22:41)
[2017-02-23] MEDS ORDERED: DOPAMINE HCL/DEXTROSE 5%-WATER 0 MG/0 ML RTUINJ IV ONE (03:59)
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
--- NOTE | 2017-02-23 05:00 | PSYCHOLOGICAL NOTE ---
Psych Note - Psych Note Psych Note: Patient is a 66 year old female in the ED on IVC for history of Bipolar, being noncompliant with medications, having esau and then acute aggression. Review of overnight documentation revealed patient was giggling and talking to self at 0534. Observed patient with brighter affect. She was interacting with staff appropriately. She was not irritable and aggressive. She was pleasant, smiling, cooperative and easily redirected. Patient's daughter/[facility] came to visit. She identified she is going to the [employer] tomorrow to file for Guardianship and was informed she will likely get a temporary order. [facility] worker, Estella ([phone]), accompanied daughter. She identified they have been working on getting patient to [facility] or the [facility] for acute inpatient stabilization. Informed her since they already made a referral this clinician would fax [facility] a packet. Also informed her that if MAULIK RAY is successful in getting accepted at the [facility] that will have to be a voluntary admission since it crossed state lines. Diagnosis: 296.80 (F31.9) Unspecified Bipolar and Related Disorder by History R/O799.59 (R41.9) Unspecified Neuro-cognitive Disorder Impression/Plan: Recommendation to maintain IVC given patient had a change in mood and affect (manic versus irritable and aggressive) today. Want to see it continue and level off. Will reassess in the morning and if patient has a cooperative night there is potential for discharge. This was shared with daughter and [facility] worker. Consulted with Dr. Victoria regarding the management and care of patient. ED Physician in agreement with recommendation.
[2017-02-23] MEDS: INSULIN REG, HUMAN 100 UNIT/ML 3 ML VIAL (PYX) SUBCUT PRN ×2 (07:30→12:00)
[2017-02-23] MEDS: BUSPIRONE HCL 10 MG TABLET PO SCH (09:49)
[2017-02-23] MEDS ORDERED: RISPERIDONE 0.25 MG TABLET PO PRN (09:53)
[2017-02-23] MEDS: LEVETIRACETAM XR 500 MG TAB.SR.24H PO SCH (10:03)
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
[2017-02-23 12:50] VITALS: BP 140/85
--- NOTE | 2017-02-24 20:25 | PSYCHOLOGICAL NOTE ---
Psych Note - Psych Note Psych Note: Patient is a 66 year old female in the ED on IVC for history of Bipolar, being noncompliant with medications, having esau and then acute aggression. Overheard patient in her ED room giggling and laughing. She commented "I lover you and stated a previous patient's name." She was carrying on conversations with herself as there was nobody else in her room. She was pleasant and cooperative. Diagnosis: 296.80 (F31.9) Unspecified Bipolar and Related Disorder by History R/O799.59 (R41.9) Unspecified Neuro-cognitive Disorder Impression/Plan: Recommendation to maintain IVC given this is only day 2.5 of receiving medications and her manic state. Per Dee at [facility] patient was declined due to uncontrolled medical issues (HTN, Diabetes, Incontinence, Seizures). Explained she had been using the restroom and the incontinence was likely when she had been in restraints her first night in the ED. Also informed there were no seizure issues and the Keppra was being utilized as a mood stabilizer. [facility] stated a new referral could be sent today for review. referrals sent to other hospital locations. [facility] accepted patient. Coordinated care with Estella from [facility] and patient's daughter/Healthcare POA. Consulted with Dr. Victoria regarding the management and care of patient. ED Physician in agreement with recommendations.
== END 2017-02-23 13:30 ==
LOC: ER 02:57
DX: F31.9 Bipolar disorder, unspecified (principal); R45.1 Restlessness and agitation; F30.9 Manic episode, unspecified; I10 Essential (primary) hypertension; F41.9 Anxiety disorder, unspecified; E11.9 Type 2 diabetes mellitus without complications; Z88.6 Allergy status to analgesic agent; Z98.51 Tubal ligation status; Z78.1 Physical restraint status
CPT/HCPCS: 93005; 99285; 96372; 36415; 82962; 80307 ×4; 80178; 85025; 80053; 81001; 93010; J2250; J1630; A9270 ×7; J3490 ×3; J1815

== ENCOUNTER → 2017-06-22 | Outpatient (CLI) | payer MEDICARE, OTHER ==
[2017-06-22 09:52] LABS: ABSOLUTE EOSINOPHILS # (AUTO) 0.2 10^3/uL (0.0-0.6); ABSOLUTE LYMPHOCYTES (AUTO) 1.7 10^3/uL (0.5-4.7); ABSOLUTE MONOCYTES (AUTO) 0.6 10^3/uL (0.1-1.4); ABSOLUTE NEUT (AUTO) 3.2 10^3/uL (1.7-8.2); BASOPHILS % (AUTO) 0.4 % (0-2); EOSINOPHILS % (AUTO) 2.6 % (0-6); HEMATOCRIT 37.6 % (36.0-47.0); HEMOGLOBIN 11.6 g/dL (12.0-15.5); LYMPHOCYTES % (AUTO) 28.9 % (13-45); MEAN CORPUSCULAR HEMOGLOBIN 20.6 pg (27.0-33.4); MEAN CORPUSCULAR HGB CONC 30.9 g/dL (32.0-36.0); MEAN CORPUSCULAR VOLUME 67 fl (80-97); MONOCYTES % (AUTO) 11.4 % (3-13); PLATELET COUNT 192 10^3/uL (150-450); RED BLOOD COUNT 5.64 10^6/uL (3.72-5.28); SEGMENTED NEUTROPHILS % (AUTO) 56.7 % (42-78); TOTAL CELLS COUNTED % (AUTO) 100 %; WHITE BLOOD COUNT 5.7 10^3/uL (4.0-10.5)
[2017-06-22 10:13] LABS: ALANINE AMINOTRANSFERASE 22 U/L (9-52); ALBUMIN 3.6 g/dL (3.5-5.0); ALKALINE PHOSPHATASE 67 U/L (38-126); ANION GAP 10 (5-19); ASPARTATE AMINO TRANSFERASE 11 U/L (14-36); BILIRUBIN,DIRECT 0.1 mg/dL (0.0-0.4); BILIRUBIN,TOTAL 0.2 mg/dL (0.2-1.3); BLOOD UREA NITROGEN 19 mg/dL (7-20); CALCIUM 9.1 mg/dL (8.4-10.2); CARBON DIOXIDE 33 mmol/L (22-30); CHLORIDE 102 mmol/L (98-107); CHOLESTEROL 170.13 mg/dL (0-200); GLUCOSE 238 mg/dL (75-110); POTASSIUM 4.1 mmol/L (3.6-5.0); SODIUM 144.8 mmol/L (137-145); TOTAL PROTEIN 6.4 g/dL (6.3-8.2); TRIGLYCERIDES 102 mg/dL (<150)
[2017-06-22 10:23] LABS: DIRECT LDL 105 mg/dL (<100)
== END ==
LOC: OD 08:51
PROVIDERS: ATTEND Psychiatry & Neurology Psychiatry
DX: F31.9 Bipolar disorder, unspecified (principal)
CPT/HCPCS: 36415; 80053; 80061; 80164; 84443; 85025

== ENCOUNTER 2017-08-12 10:32 | Emergency (ER) | payer MEDICARE, MEDICAID ==
[2017-08-12] MEDS ORDERED: PROCHLORPERAZINE EDISYLATE INJ 10 MG/2 ML VIAL IV ONE (11:00)
[2017-08-12] MEDS ORDERED: DIPHENHYDRAMINE HCL 50 MG/ML VIAL IV ONE (11:00)
--- NOTE | 2017-08-12 11:01 | ER Document Report ---
ED Medical Screen (RME) - General Chief Complaint: High Blood Pressure Stated Complaint: HEADACHE Time Seen by Provider: 08/12/17 10:55 Mode of Arrival: Ambulatory Information source: Patient Notes: 66-year-old female presents with complaints of headache of 1-2 week duration. Patient denies any fevers or chills denies any neurological deficits denies any trauma patient notes that these symptoms presented after she slowed down caffeine intake notes caffeine helps improve her headache I have greeted and performed a rapid initial assessment of this patient. A comprehensive ED assessment and evaluation of the patient, analysis of test results and completion of the medical decision making process will be conducted by additional ED providers. PHYSICAL EXAMINATION: GENERAL: Well-appearing, well-nourished and in no acute distress. HEAD: Atraumatic, normocephalic. EYES: Pupils equal round extraocular movements intact, conjunctiva are normal. ENT: Nares patent NECK: Normal range of motion LUNGS: No respiratory distress Musculoskeletal: Normal range of motion NEUROLOGICAL: Normal speech, normal gait. PSYCH: Normal mood, normal affect. SKIN: Warm, Dry, normal turgor, no rashes or lesions noted. TRAVEL OUTSIDE OF THE [place] IN LAST 30 DAYS: No - Related Data Allergies/Adverse Reactions: codeine [Codeine] Allergy (Mild, Verified 08/12/17 10:33) Nausea Past Medical History - Social History Frequency of alcohol use: None Drug Abuse: None - Past Medical History Cardiac Medical History: Reports: Hx Hypertension Denies: Hx Coronary Artery Disease, Hx Heart Attack Pulmonary Medical History: Denies: Hx Asthma, Hx Bronchitis, Hx COPD, Hx Pneumonia Neurological Medical History: Denies: Hx Cerebrovascular Accident, Hx Seizures Endocrine Medical History: Reports: Hx Diabetes Mellitus Type 2 Renal/ Medical History: Denies: Hx Peritoneal Dialysis Musculoskeltal Medical History: Denies Hx Arthritis Psychiatric Medical History: Reports: Hx Bipolar Disorder Past Surgical History: Reports: Hx Tubal Ligation, Hx Urinary Tract Surgery. Denies: Hx Hysterectomy - Immunizations Hx Diphtheria, Pertussis, Tetanus Vaccination: Yes Physical Exam - Vital signs Vitals: Temp Pulse Resp BP Pulse Ox 98.6 F 99 20 155/89 H 95 08/12/17 10:41 08/12/17 10:41 08/12/17 10:41 08/12/17 10:41 08/12/17 10:41 Course - Vital Signs Vital signs: Temp Pulse Resp BP Pulse Ox 98.6 F 99 20 155/89 H 95 08/12/17 10:41 08/12/17 10:41 08/12/17 10:41 08/12/17 10:41 08/12/17 10:41 Doctor's Discharge - Discharge Referrals: JAQUELIN MONIQUE MD [Primary Care Provider] - Follow up as needed
[2017-08-12 11:43] LABS: ABSOLUTE BASOPHILS # (AUTO) 0.1 10^3/uL (0.0-0.2); ABSOLUTE EOSINOPHILS # (AUTO) 0.1 10^3/uL (0.0-0.6); ABSOLUTE LYMPHOCYTES (AUTO) 1.2 10^3/uL (0.5-4.7); ABSOLUTE MONOCYTES (AUTO) 0.7 10^3/uL (0.1-1.4); ABSOLUTE NEUT (AUTO) 3.5 10^3/uL (1.7-8.2); EOSINOPHILS % (AUTO) 1.2 % (0-6); HEMATOCRIT 38.8 % (36.0-47.0); HEMOGLOBIN 12.2 g/dL (12.0-15.5); LYMPHOCYTES % (AUTO) 21.9 % (13-45); MEAN CORPUSCULAR HEMOGLOBIN 21.2 pg (27.0-33.4); MEAN CORPUSCULAR HGB CONC 31.6 g/dL (32.0-36.0); MEAN CORPUSCULAR VOLUME 67 fl (80-97); MONOCYTES % (AUTO) 12.5 % (3-13); PLATELET COUNT 184 10^3/uL (150-450); RED BLOOD COUNT 5.77 10^6/uL (3.72-5.28); RED CELL DISTRIBUTION WIDTH 17.1 % (11.5-14.0); SEGMENTED NEUTROPHILS % (AUTO) 63.4 % (42-78); TOTAL CELLS COUNTED % (AUTO) 100 %; WHITE BLOOD COUNT 5.6 10^3/uL (4.0-10.5)
--- NOTE | 2017-08-12 11:55 | RADIOLOGY REPORT (SQ) ---
EXAM DESCRIPTION: CT HEAD WITHOUT COMPLETED DATE/TIME: 08/12/2017 11:45 am REASON FOR STUDY: headache COMPARISON: None. TECHNIQUE: Axial images acquired through the brain without intravenous contrast. Images reviewed wi th bone, brain and subdural windows. Additional sagittal and coronal reconstructions were generated. Images stored on PACS. All CT scanners at this facility use dose modulation, iterative reconstruction, and/or weight based d osing when appropriate to reduce radiation dose to as low as reasonably achievable (ALARA). [facility]: Dose Right [facility]: CareDose [facility]: Dose Right [facility]: Teradose 4D [facility]: Monaeo RADIATION DOSE: CT Rad equipment meets quality standard of care and radiation dose reduction techniq ues were employed. CTDIvol: 53.2 mGy. DLP: 1017 mGy-cm. mGy. LIMITATIONS: None. FINDINGS: VENTRICLES: Normal size and contour. CEREBRUM: No masses. No hemorrhage. No midline shift. No evidence for acute infarction. Normal gra y/white matter differentiation. No areas of low density in the white matter. CEREBELLUM: No masses. No hemorrhage. No alteration of density. No evidence for acute infarction. EXTRAAXIAL SPACES: No fluid collections. No masses. ORBITS AND GLOBE: No intra- or extraconal masses. Normal contour of globe without masses. CALVARIUM: No fracture. PARANASAL SINUSES: No fluid or mucosal thickening. SOFT TISSUES: No mass or hematoma. OTHER: No other significant finding. IMPRESSION: NORMAL BRAIN CT WITHOUT CONTRAST. EVIDENCE OF ACUTE STROKE: NO. COMMENT: Quality ID # [id number]: Final reports with documentation of one or more dose reduction techniques (e.g., Automated exposure control, adjustment of the mA and/or kV according to patient size, use of iterative reconstruction technique) TECHNICAL DOCUMENTATION: JOB ID: [id number] [employer]- All Rights Reserved Reading location - IP/workstation name: [email or web address]
--- NOTE | 2017-08-12 12:03 | ER Document Report ---
ED General - General Chief Complaint: High Blood Pressure Stated Complaint: HEADACHE Time Seen by Provider: 08/12/17 10:55 Mode of Arrival: Ambulatory Notes: 66-year-old female to emergency department complaining of high blood pressure and headache. Denies any chest pain, shortness of breath, problems with eyes ears nose and throat. States that she has been drinking several sodas a day but recently decided to stop drinking Pepsi. Thinks maybe she is having them caffeine withdrawal headache. Denies any blurred vision, neck pain, fever, chills, sweats or other issues at this time. TRAVEL OUTSIDE OF THE [place]. IN LAST 30 DAYS: No - HPI Onset: This morning Onset/Duration: Gradual Severity: Mild Pain Level: 2 Associated symptoms: None - Related Data Allergies/Adverse Reactions: codeine [Codeine] Allergy (Mild, Verified 08/12/17 10:33) Nausea Past Medical History - General Information source: Patient - Social History Smoking Status: Never Smoker Cigarette use (# per day): No Frequency of alcohol use: None Drug Abuse: None Lives with: Family Family History: Reviewed & Not Pertinent Patient has suicidal ideation: No Patient has homicidal ideation: No - Past Medical History Cardiac Medical History: Reports: Hx Hypertension Denies: Hx Coronary Artery Disease, Hx Heart Attack Pulmonary Medical History: Denies: Hx Asthma, Hx Bronchitis, Hx COPD, Hx Pneumonia Neurological Medical History: Denies: Hx Cerebrovascular Accident, Hx Seizures Endocrine Medical History: Reports: Hx Diabetes Mellitus Type 2 Renal/ Medical History: Denies: Hx Peritoneal Dialysis Musculoskeltal Medical History: Denies Hx Arthritis Psychiatric Medical History: Reports: Hx Bipolar Disorder Past Surgical History: Reports: Hx Tubal Ligation, Hx Urinary Tract Surgery. Denies: Hx Hysterectomy - Immunizations Hx Diphtheria, Pertussis, Tetanus Vaccination: Yes Hx Pneumococcal Vaccination: 12/12/13 Review of Systems - Review of Systems Constitutional: No symptoms reported EENT: No symptoms reported Cardiovascular: No symptoms reported Respiratory: No symptoms reported Gastrointestinal: No symptoms reported Genitourinary: No symptoms reported Female Genitourinary: No symptoms reported Musculoskeletal: No symptoms reported Skin: No symptoms reported Hematologic/Lymphatic: No symptoms reported Neurological/Psychological: Headaches Physical Exam - Vital signs Vitals: Temp Pulse Resp BP Pulse Ox 98.6 F 99 20 155/89 H 95 08/12/17 10:41 08/12/17 10:41 08/12/17 10:41 08/12/17 10:41 08/12/17 10:41 Interpretation: Normal - General General appearance: Appears well, Alert - HEENT Head: Normocephalic, Atraumatic Eyes: Normal Pupils: PERRL - Respiratory Respiratory status: No respiratory distress Chest status: Nontender Breath sounds: Normal Chest palpation: Normal - Cardiovascular Rhythm: Regular Heart sounds: Normal auscultation Murmur: No - Abdominal Inspection: Normal Distension: No distension Bowel sounds: Normal Tenderness: Nontender Organomegaly: No organomegaly - Back Back: Normal, Nontender - Extremities General upper extremity: Normal inspection, Nontender, Normal color, Normal ROM , Normal temperature General lower extremity: Normal inspection, Nontender, Normal color, Normal ROM , Normal temperature, Normal weight bearing. No: Sheree's sign - Neurological Neuro grossly intact: Yes Cognition: Normal Orientation: AAOx4 Nellie Coma Scale Eye Opening: Spontaneous [place] Coma Scale Verbal: Oriented [place] Coma Scale Motor: Obeys Commands Nellie Coma Scale Total: 15 Speech: Normal Motor strength normal: LUE, RUE, LLE, RLE Sensory: Normal - Psychological Associated symptoms: Normal affect, Normal mood - Skin Skin Temperature: Warm Skin Moisture: Dry Skin Color: Normal Course - Re-evaluation Re-evalutation: 08/12/17 13:02 With normal mental status exam. Little sleepy from the migraine medications but feeling much better at this time. Labs fairly unremarkable. He CT head negative. Blood pressure 140/90. I do not feel this represents subarachnoid hemorrhage. Not the worst headache of her life. No concern in my opinion at this time for meningitis. Recommend she continue her blood pressure medications and return for any worsening symptoms or concerns. 08/12/17 13:02 - Vital Signs Vital signs: Temp Pulse Resp BP Pulse Ox 98.6 F 99 20 155/89 H 95 08/12/17 10:41 08/12/17 10:41 08/12/17 10:41 08/12/17 10:41 08/12/17 10:41 - Laboratory Result Diagrams: 08/12/17 11:20 08/12/17 12:05 Laboratory results interpreted by me: 08/12/17 08/12/17 11:20 12:05 RBC 5.77 H MCV 67 L MCH 21.2 L MCHC 31.6 L RDW 17.1 H Sodium 145.7 H Potassium 3.4 L Glucose 180 H AST 43 H Discharge - Discharge Clinical Impression: Headache Qualifiers: Headache type: unspecified Headache chronicity pattern: unspecified pattern Intractability: not intractable Qualified Code(s): R51 - Headache Hypertension Qualifiers: Hypertension type: unspecified Qualified Code(s): I10 - Essential (primary) hypertension Disposition: HOME, SELF-CARE Instructions: Headache ([facility]), High Blood Pressure ([facility]) Additional Instructions: Continue to take your regular medications. Please follow-up with your regular doctor soon as possible for repeat evaluation. If symptoms get worse please return to emergency department for further evaluation. Referrals: JAQUELIN MONIQUE MD [NO LOCAL MD] - Follow up as needed
[2017-08-12 12:57] LABS: ALANINE AMINOTRANSFERASE 48 U/L (9-52); ALBUMIN 3.6 g/dL (3.5-5.0); ALKALINE PHOSPHATASE 59 U/L (38-126); ANION GAP 13 (5-19); ASPARTATE AMINO TRANSFERASE 43 U/L (14-36); BILIRUBIN,DIRECT 0.3 mg/dL (0.0-0.4); BILIRUBIN,TOTAL 0.4 mg/dL (0.2-1.3); BLOOD UREA NITROGEN 18 mg/dL (7-20); CALCIUM 9.4 mg/dL (8.4-10.2); CARBON DIOXIDE 30 mmol/L (22-30); CHLORIDE 103 mmol/L (98-107); GLUCOSE 180 mg/dL (75-110); POTASSIUM 3.4 mmol/L (3.6-5.0); SODIUM 145.7 mmol/L (137-145); TOTAL PROTEIN 6.5 g/dL (6.3-8.2)
[2017-08-12 13:47] VITALS: BP 142/84
[2017-08-12 15:11] LABS: APPEARANCE,URINE CLOUDY; BILIRUBIN,URINE NEGATIVE (NEGATIVE); COLOR,URINE YELLOW; GLUCOSE, URINE 50 mg/dL (NEGATIVE); KETONES,URINE TRACE mg/dL (NEGATIVE); LEUKOCYTE ESTERASE,URINE LARGE (NEGATIVE); NITRITE,URINE NEGATIVE (NEGATIVE); PROTEIN,URINE NEGATIVE (NEGATIVE); URINE SPECIFIC GRAVITY 1.019; UROBILINOGEN,URINE NEGATIVE mg/dL (<2.0)
== END 2017-08-12 13:45 | disposition home or self-care (01) ==
LOC: ER 10:32
DX: R51 Headache (principal); I10 Essential (primary) hypertension; E11.9 Type 2 diabetes mellitus without complications
CPT/HCPCS: 99284; 96374; 96375; 36415; 87086; 85025; 87088; 80053; 81001; 70450; J1200; J0780

== ENCOUNTER → 2017-08-22 | Outpatient (CLI) | payer MEDICARE, MEDICAID ==
--- NOTE | 2017-08-25 19:11 | WOMENS IMAGING REPORT ---
EXAM DESCRIPTION: 3D SCREENING MAMMO BILAT COMPLETED DATE/TIME: 08/22/2017 3:25 pm REASON FOR STUDY: ROUTINE SCREENING;Z12.31 Z12.31 ENCNTR SCREEN MAMMOGRAM FOR MALIGNANT NEOPLASM OF SOL COMPARISON: 2008 TECHNIQUE: Standard craniocaudal and mediolateral oblique views of each breast recorded using digita l acquisition and breast tomosynthesis. LIMITATIONS: None. FINDINGS: No masses, calcifications or architectural distortion. No areas of suspicion. Read with the assistance of CAD. .[facility] - R2 Cenova Version 1.3 .[facility] Imaging - R2 Cenova Version 1.3 .[facility] Imaging - R2 Cenova Version 2.4 .[facility] - R2 Cenova Version 2.4 .[facility] - R2 Roofing Technician Version 9.2 IMPRESSION: NORMAL MAMMOGRAM. BIRADS 1. BREAST DENSITY: b. There are scattered areas of fibroglandular density. BIRAD: 1 NEGATIVE RECOMMENDATION: ROUTINE SCREENING Please continue yearly bilateral screening tomosynthesis in August 2018 COMMENT: The patient has been notified of the results by letter per [facility] requirements. Additional no tification policies are in place for contacting patient with suspicious or incomplete findings. Quality ID #[id number]: The [employer] recommends an annual screening mammogram for women aged 40 years or over. This facility utilizes a reminder system to ensure that all patients receive reminder letters, and/or direct phone calls for appointments. This includes reminders for routine scr eening mammograms, diagnostic mammograms, or other Breast Imaging Interventions when appropriate. Th is patient will be placed in the appropriate reminder system. The [employer] (ACR) has developed recommendations for screening MRI of the breast s in certain patient populations, to be used in conjunction with mammography. Breast MRI surveillanc e may be appropriate for women with more than 20% lifetime risk of developing breast cancer as deter mined by genetic testing, significant family history of the disease, or history of mantle radiation f or Hodgkins Disease. ACR Practice Guidelines 2008. DBT Technology DBT is a type of tomographic mammography. With conventional mammography, overlapping breast tissue ma y make lesions difficult to detect, even with good compression. DBT uses an x-ray tube that rotates a round the breast, taking images at different angles. These images are then combined to create thin sl ices of the breast that the radiologist can view as a 3D reconstruction. The [employer] unit can perform full-field digital mammograms (2D imaging); or DBT (3D imaging); or both, in a combination mode that quickly performs both the mammogram and the tomosynthesis scan while the breast is still compressed. PQRS 6045F: Fluoroscopic imaging is not utilized for breast tomosynthesis. TECHNICAL DOCUMENTATION: FINDING NUMBER: (1) ASSESSMENT: (1) JOB ID: [id number] [employer]- All Rights Reserved Reading location - IP/workstation name: [email or web address]
== END ==
LOC: WI 14:57
PROVIDERS: ATTEND Nurse Practitioner
DX: Z12.31 Encounter for screening mammogram for malignant neoplasm of breast (principal)
CPT/HCPCS: 77063; 77067

== ENCOUNTER → 2018-03-21 | Outpatient (CLI) | payer MEDICARE, MEDICAID ==
[2018-03-21 15:51] LABS: ABSOLUTE EOSINOPHILS # (AUTO) 0.1 10^3/uL (0.0-0.6); ABSOLUTE LYMPHOCYTES (AUTO) 1.8 10^3/uL (0.5-4.7); ABSOLUTE MONOCYTES (AUTO) 0.6 10^3/uL (0.1-1.4); BASOPHILS % (AUTO) 0.5 % (0-2); EOSINOPHILS % (AUTO) 1.5 % (0-6); HEMATOCRIT 36.3 % (36.0-47.0); HEMOGLOBIN 11.7 g/dL (12.0-15.5); LYMPHOCYTES % (AUTO) 32.5 % (13-45); MEAN CORPUSCULAR HEMOGLOBIN 21.9 pg (27.0-33.4); MEAN CORPUSCULAR HGB CONC 32.1 g/dL (32.0-36.0); MEAN CORPUSCULAR VOLUME 68 fl (80-97); MONOCYTES % (AUTO) 11.2 % (3-13); PLATELET COUNT 182 10^3/uL (150-450); RED BLOOD COUNT 5.33 10^6/uL (3.72-5.28); RED CELL DISTRIBUTION WIDTH 16.9 % (11.5-14.0); SEGMENTED NEUTROPHILS % (AUTO) 54.3 % (42-78); TOTAL CELLS COUNTED % (AUTO) 100 %; WHITE BLOOD COUNT 5.5 10^3/uL (4.0-10.5)
[2018-03-21 16:33] LABS: ALANINE AMINOTRANSFERASE 18 U/L (9-52); ALBUMIN 3.9 g/dL (3.5-5.0); ALKALINE PHOSPHATASE 57 U/L (38-126); ANION GAP 10 (5-19); ASPARTATE AMINO TRANSFERASE 18 U/L (14-36); BILIRUBIN,DIRECT 0.1 mg/dL (0.0-0.4); BILIRUBIN,TOTAL 0.3 mg/dL (0.2-1.3); BLOOD UREA NITROGEN 13 mg/dL (7-20); CALCIUM 9.2 mg/dL (8.4-10.2); CARBON DIOXIDE 28 mmol/L (22-30); CHLORIDE 103 mmol/L (98-107); CHOLESTEROL 186.58 mg/dL (0-200); GLUCOSE 141 mg/dL (75-110); POTASSIUM 3.7 mmol/L (3.6-5.0); SODIUM 140.5 mmol/L (137-145); TOTAL PROTEIN 6.6 g/dL (6.3-8.2); TRIGLYCERIDES 119 mg/dL (<150)
[2018-03-21 16:45] LABS: DIRECT LDL 115 mg/dL (<100)
== END ==
LOC: OD 14:32
PROVIDERS: ATTEND Psychiatry & Neurology Psychiatry
DX: F31.9 Bipolar disorder, unspecified (principal); F41.1 Generalized anxiety disorder; F51.01 Primary insomnia; Z79.899 Other long term (current) drug therapy
CPT/HCPCS: 36415; 80053; 80061; 84443; 85025

== ENCOUNTER → 2018-03-31 | Outpatient (CLI) | payer MEDICARE, MEDICAID | LOC: OD 09:22 | PROVIDERS: ATTEND Psychiatry & Neurology Psychiatry | DX: F31.9 Bipolar disorder, unspecified (principal) | CPT/HCPCS: 36415; 80164 ==

== ENCOUNTER 2018-06-01 11:46 | Emergency (ER) | payer MEDICARE, MEDICAID ==
--- NOTE | 2018-06-01 13:06 | ER Document Report ---
ED Medical Screen (RME) - General Chief Complaint: Flank Pain Stated Complaint: FLANK PAIN Time Seen by Provider: 06/01/18 12:52 Primary Care Provider: JAQUELIN MONIQUE MD [Primary Care Provider] - Follow up as needed Mode of Arrival: Ambulatory Information source: Patient TRAVEL OUTSIDE OF THE [place] IN LAST 30 DAYS: No - HPI Notes: 06/01/18 13:03 Rapid medical exam in triage: 67-year-old female history of bipolar and diverticulitis presents to the emergency department with report of the 3-day history of progressive abdominal pain left greater than right lateral pain. No radiation through to the back, but she does report mild urinary frequency and urgency. No chest pain or difficulty breathing or cough. No fever or chills. No nausea or vomiting. She does describe mild diarrhea this morning that was nonbloody. No recent antibiotics. On physical exam HEENT atraumatic normocephalic Neck nontender Cardiovascular regular rate and rhythm without appreciable murmur gallop or rub. Lungs clear to auscultation bilaterally Abdomen is obese soft tenderness left lateral lower abdominal region greater than right lateral lower abdominal region. Suspicious that there is no significant midline discomfort. No rebound or guarding. No pulsatile mass. Back no CVA discomfort. Extremities no edema. Question UTI versus diverticulitis given the mild diarrhea and previous history. Less likely aneurysm but will rule out other acute process. Plan for CT scan urinalysis and blood work. Please see partner's note for continuation and further evaluation. 06/01/18 13:04 - Related Data Allergies/Adverse Reactions: codeine [Codeine] Adverse Reaction (Mild, Verified 06/01/18 12:59) Nausea Past Medical History - General Information source: Patient - Social History Chew tobacco use (# tins/day): No Frequency of alcohol use: None Drug Abuse: None Lives with: Family Family history: Reviewed & Not Pertinent - Past Medical History Cardiac Medical History: Reports: Hx Hypertension Denies: Hx Coronary Artery Disease, Hx Heart Attack Pulmonary Medical History: Denies: Hx Asthma, Hx Bronchitis, Hx COPD, Hx Pneumonia Neurological Medical History: Denies: Hx Cerebrovascular Accident, Hx Seizures Endocrine Medical History: Reports: Hx Diabetes Mellitus Type 2 Renal/ Medical History: Denies: Hx Peritoneal Dialysis Musculoskeltal Medical History: Denies Hx Arthritis Psychiatric Medical History: Reports: Hx Bipolar Disorder Past Surgical History: Reports: Hx Tubal Ligation, Hx Urinary Tract Surgery. Denies: Hx Hysterectomy - Immunizations Hx Diphtheria, Pertussis, Tetanus Vaccination: Yes Physical Exam - Vital signs Vitals: Temp Pulse Resp BP Pulse Ox 98.3 F 100 20 145/100 H 97 06/01/18 11:52 06/01/18 11:52 06/01/18 11:52 06/01/18 11:52 06/01/18 11:52 Course - Vital Signs Vital signs: Temp Pulse Resp BP Pulse Ox 98.3 F 100 20 145/100 H 97 06/01/18 11:52 06/01/18 11:52 06/01/18 11:52 06/01/18 11:52 06/01/18 11:52 Doctor's Discharge - Discharge Referrals: JAQUELIN MONIQUE MD [Primary Care Provider] - Follow up as needed
[2018-06-01 13:56] LABS: ABSOLUTE BASOPHILS # (AUTO) 0.1 10^3/uL (0.0-0.2); ABSOLUTE EOSINOPHILS # (AUTO) 0.1 10^3/uL (0.0-0.6); ABSOLUTE LYMPHOCYTES (AUTO) 1.2 10^3/uL (0.5-4.7); ABSOLUTE MONOCYTES (AUTO) 0.4 10^3/uL (0.1-1.4); ABSOLUTE NEUT (AUTO) 3.9 10^3/uL (1.7-8.2); EOSINOPHILS % (AUTO) 1.3 % (0-6); HEMATOCRIT 36.6 % (36.0-47.0); HEMOGLOBIN 11.9 g/dL (12.0-15.5); LYMPHOCYTES % (AUTO) 21.6 % (13-45); MEAN CORPUSCULAR HEMOGLOBIN 22.2 pg (27.0-33.4); MEAN CORPUSCULAR HGB CONC 32.6 g/dL (32.0-36.0); MEAN CORPUSCULAR VOLUME 68 fl (80-97); MONOCYTES % (AUTO) 7.5 % (3-13); PLATELET COUNT 171 10^3/uL (150-450); RED BLOOD COUNT 5.38 10^6/uL (3.72-5.28); RED CELL DISTRIBUTION WIDTH 16.3 % (11.5-14.0); SEGMENTED NEUTROPHILS % (AUTO) 68.6 % (42-78); TOTAL CELLS COUNTED % (AUTO) 100 %; WHITE BLOOD COUNT 5.7 10^3/uL (4.0-10.5)
[2018-06-01 14:01] LABS: APPEARANCE,URINE SLIGHTLY-CLOUDY; BILIRUBIN,URINE NEGATIVE (NEGATIVE); COLOR,URINE YELLOW; GLUCOSE, URINE >=500 mg/dL (NEGATIVE); KETONES,URINE TRACE mg/dL (NEGATIVE); LEUKOCYTE ESTERASE,URINE LARGE (NEGATIVE); NITRITE,URINE NEGATIVE (NEGATIVE); PROTEIN,URINE NEGATIVE (NEGATIVE); URINE SPECIFIC GRAVITY 1.018; UROBILINOGEN,URINE NEGATIVE mg/dL (<2.0)
--- NOTE | 2018-06-01 14:03 | ER Document Report ---
ED General - General Chief Complaint: Flank Pain Stated Complaint: FLANK PAIN Time Seen by Provider: 06/01/18 12:52 Primary Care Provider: JAQUELIN MONIQUE MD [Primary Care Provider] - Follow up as needed Mode of Arrival: Ambulatory Information source: Patient TRAVEL OUTSIDE OF THE [place] IN LAST 30 DAYS: No - HPI Patient complains to provider of: Left-sided abdominal pain, loose stools Onset: Other - About 4 days ago Onset/Duration: Gradual Quality of pain: Cramping, Sharp Severity: Severe Pain Level: 5 Associated symptoms: denies: Chills, Diarrhea, Fever, Nausea, Vomiting Exacerbated by: Denies Relieved by: Denies Similar symptoms previously: Yes Recently seen / treated by doctor: No Notes: 67-year-old -[place] female coming in today with left-sided low abdominal pain with loose stools. History of diverticulitis in the past. Not having any fevers or chills. Not having any nausea vomiting or diarrhea. Denies having urinary symptoms - Related Data Allergies/Adverse Reactions: codeine [Codeine] Adverse Reaction (Mild, Verified 06/01/18 12:59) Nausea Past Medical History - General Information source: Patient - Social History Smoking Status: Never Smoker Chew tobacco use (# tins/day): No Frequency of alcohol use: None Drug Abuse: None Lives with: Family Family History: Reviewed & Not Pertinent Patient has suicidal ideation: No Patient has homicidal ideation: No - Past Medical History Cardiac Medical History: Reports: Hx Hypertension Denies: Hx Coronary Artery Disease, Hx Heart Attack Pulmonary Medical History: Denies: Hx Asthma, Hx Bronchitis, Hx COPD, Hx Pneumonia Neurological Medical History: Denies: Hx Cerebrovascular Accident, Hx Seizures Endocrine Medical History: Reports: Hx Diabetes Mellitus Type 2 Renal/ Medical History: Denies: Hx Peritoneal Dialysis Musculoskeletal Medical History: Denies Hx Arthritis Psychiatric Medical History: Reports: Hx Bipolar Disorder Past Surgical History: Reports: Hx Tubal Ligation, Hx Urinary Tract Surgery. Denies: Hx Hysterectomy - Immunizations Hx Diphtheria, Pertussis, Tetanus Vaccination: Yes Hx Pneumococcal Vaccination: 12/12/13 Review of Systems - Review of Systems Notes: Constitutional: No fevers. No chills. EENT: No eye redness. No eye pain. No ear pain. No sore throat. Cardiovascular: No chest pain. No palpitations. Respiratory: No cough. No shortness of breath. No respiratory distress. Gastrointestinal: Positive for abdominal pain. No nausea, vomiting, or diarrhea. Positive for loose stools Genitourinary: Atraumatic. No lesions. No pain. No discharge. Musculoskeletal: Atraumatic. No swelling. No deformities. Skin: No rash or lesions. Lymphatic: No swollen lymph nodes. Neurologic: No headache. No syncope. Psychiatric: No suicidal or homicidal ideation. Physical Exam - Vital signs Vitals: Temp Pulse Resp BP Pulse Ox 98.3 F 100 20 145/100 H 97 06/01/18 11:52 06/01/18 11:52 06/01/18 11:52 06/01/18 11:52 06/01/18 11:52 - Notes Notes: General: Well-developed, well-nourished. In no acute distress. Non-toxic appearing. Cardiac: Well-perfused. Regular rate and rhythm. No murmurs, rubs, or gallops. Pulmonary: No respiratory distress. No cyanosis. Bilateral lung win are clear to auscultation. Abdominal: Non-distended. Non-rigid. Mild tenderness to the left mid abdomen. No guarding or rebound. Bowel sounds are present in all 4 quadrants. HEENT: Head is atraumatic. Conjunctivae not reddened. No tearing. PERRL. EOMI. Orbits atraumatic. No periorbital swelling or erythema. Oropharynx is without erythema, swelling, or exudates. Neck: Supple. No adenopathy. No meningismus. Dermatologic: Warm with good turgor. No rash. Atraumatic. Chest: Atraumatic. No chest wall tenderness to palpation. Musculoskeletal: Moves all extremities well. No range of motion deficits. no muscular or joint tenderness. No paraspinal muscle tenderness. no midline spinal tenderness or step-off. Genitourinary: Examination deferred Neurologic: No gross neurologic deficits. Psychiatric: Normal mood. Course - Re-evaluation Re-evalutation: 06/01/18 14:03 Differential includes kidney stone, UTI, pyelonephritis, diverticulitis, less likely appendicitis. 06/01/18 18:27 Patient is afebrile. Labs all look good. Does not have a white count. Uncomplicated sigmoid diverticulitis without perforation or abscess. Will discharge patient home on p.o. antibiotics. Have her return if things start to get worse. Follow-up with PMD tomorrow - Vital Signs Vital signs: Temp Pulse Resp BP Pulse Ox 98.1 F 86 20 142/76 H 95 06/01/18 15:47 06/01/18 15:47 06/01/18 15:47 06/01/18 15:47 06/01/18 15:47 - Laboratory Result Diagrams: 06/01/18 13:38 06/01/18 13:38 Laboratory results interpreted by me: 06/01/18 06/01/18 06/01/18 13:38 13:38 13:38 RBC 5.38 H Hgb 11.9 L MCV 68 L MCH 22.2 L RDW 16.3 H Potassium 3.4 L Glucose 215 H Urine Glucose (UA) >=500 H Urine Ketones TRACE H Urine Blood SMALL H Ur Leukocyte Esterase LARGE H - Diagnostic Test Radiology reviewed: Reports reviewed - CT scan shows sigmoid diverticulitis. There is no abscess Discharge - Discharge Clinical Impression: Acute diverticulitis Condition: Good Disposition: HOME, SELF-CARE Instructions: Ciprofloxacin ([facility]), Diverticulitis ([facility]), Low Residue Diet ([facility]), Metronidazole ([facility]) Additional Instructions: If you develop a fever or start having increased pain or are developing nausea and vomiting, need to return to the emergency department. Follow-up with your doctor tomorrow Prescriptions: Hydrocodone/Acetaminophen [[place] 5-325 Tablet] 1 each PO Q6HP PRN #12 tablet PRN Reason: Ciprofloxacin HCl [Cipro 500 mg Tablet] 500 mg PO BID #20 tablet Metronidazole [Flagyl] 500 mg PO TID #30 tablet Referrals: JAQUELIN MONIQUE MD [Primary Care Provider] - Follow up tomorrow
[2018-06-01 14:21] LABS: ALANINE AMINOTRANSFERASE 19 U/L (9-52); ALBUMIN 3.8 g/dL (3.5-5.0); ALKALINE PHOSPHATASE 53 U/L (38-126); ANION GAP 15 (5-19); ASPARTATE AMINO TRANSFERASE 15 U/L (14-36); BILIRUBIN,DIRECT 0.3 mg/dL (0.0-0.4); BILIRUBIN,TOTAL 0.3 mg/dL (0.2-1.3); BLOOD UREA NITROGEN 12 mg/dL (7-20); CALCIUM 9.6 mg/dL (8.4-10.2); CARBON DIOXIDE 26 mmol/L (22-30); CHLORIDE 101 mmol/L (98-107); GLUCOSE 215 mg/dL (75-110); LIPASE 146.5 U/L (23-300); POTASSIUM 3.4 mmol/L (3.6-5.0); SODIUM 142.3 mmol/L (137-145); TOTAL PROTEIN 6.9 g/dL (6.3-8.2)
--- NOTE | 2018-06-01 18:07 | RADIOLOGY REPORT (SQ) ---
EXAM DESCRIPTION: CT ABD/PELVIS WITH IV ORAL COMPLETED DATE/TIME: 06/01/2018 5:37 pm REASON FOR STUDY: L > R lower quad pain, hx diverticulitis COMPARISON: 03/12/2015 TECHNIQUE: CT scan of the abdomen and pelvis performed with intravenous and oral contrast using shelli lawrence scanning technique with dynamic intravenous contrast injection. Images reviewed with lung, soft t issue, and bone windows. Reconstructed coronal and sagittal MPR images reviewed. Delayed images for e valuation of the urinary system also acquired. All images stored on PACS. All CT scanners at this facility use dose modulation, iterative reconstruction, and/or weight based d osing when appropriate to reduce radiation dose to as low as reasonably achievable (ALARA). [facility]: Dose Right [facility]: CareDose [facility]: Dose Right [facility]: Teradose 4D [facility]: [employer] CONTRAST TYPE AND DOSE: contrast/concentration: Isovue 350.00 mg/ml; Total Contrast Delivered: 100.0 ml; Total Saline Delivered: 72.0 ml RENAL FUNCTION: GFR > 60. RADIATION DOSE: CT Rad equipment meets quality standard of care and radiation dose reduction techniq ues were employed. CTDIvol: 20.5 - 21.1 mGy. DLP: 2257 mGy-cm. . LIMITATIONS: Motion. FINDINGS: LOWER CHEST: Nothing acute. LIVER: Normal size. No masses. No dilated ducts. SPLEEN: Normal size. No focal lesions. PANCREAS: No masses. No significant calcifications. No adjacent inflammation or peripancreatic fluid collections. Pancreatic duct not dilated. GALLBLADDER: No identified stones by CT criteria. No inflammatory changes to suggest cholecystitis. ADRENAL GLANDS: No significant masses or asymmetry. RIGHT KIDNEY AND URETER: No solid masses. 2 mm calculus lower pole. No hydronephrosis or hydroure ter. LEFT KIDNEY AND URETER: No solid masses. No significant calcifications. No hydronephrosis or hydr oureter. AORTA AND VESSELS: No aneurysm. No dissection. Renal arteries, SMA, celiac without stenosis. RETROPERITONEUM: No retroperitoneal adenopathy, hemorrhage or masses. BOWEL AND PERITONEAL CAVITY: Mesenteric inflammation proximal sigmoid colon. Image 45. No abscess. No obstruction. No ascites or free air. APPENDIX: Not visualized. PELVIS: 7 cm serosal fibroid. ABDOMINAL WALL: Fat containing umbilical hernia. BONES: Nothing acute. OTHER: No other significant finding. IMPRESSION: Sigmoid diverticulitis. TECHNICAL DOCUMENTATION: JOB ID: [id number] Quality ID # [id number]: Final reports with documentation of one or more dose reduction techniques (e.g., Au tomated exposure control, adjustment of the mA and/or kV according to patient size, use of iterative reconstruction technique) 2010 [employer]- All Rights Reserved Reading location - IP/workstation name: [email or web address]
[2018-06-01 18:39] VITALS: BP 154/99
== END 2018-06-01 18:39 | disposition home or self-care (01) ==
LOC: ER 11:46
DX: K57.92 Diverticulitis of intestine, part unspecified, without perforation or abscess without bleeding (principal); R10.32 Left lower quadrant pain; R19.7 Diarrhea, unspecified; I10 Essential (primary) hypertension; E11.9 Type 2 diabetes mellitus without complications; Z88.6 Allergy status to analgesic agent; Z98.51 Tubal ligation status
CPT/HCPCS: 36415; 74177; 80053; 81001; 83690; 85025; 99284

== ENCOUNTER → 2018-10-30 | Outpatient (CLI) | payer MEDICARE, MEDICAID ==
[2018-10-30 09:54] LABS: ABSOLUTE EOSINOPHILS # (AUTO) 0.1 10^3/uL (0.0-0.6); ABSOLUTE LYMPHOCYTES (AUTO) 1.5 10^3/uL (0.5-4.7); ABSOLUTE MONOCYTES (AUTO) 0.7 10^3/uL (0.1-1.4); ABSOLUTE NEUT (AUTO) 3.3 10^3/uL (1.7-8.2); BASOPHILS % (AUTO) 0.7 % (0-2); EOSINOPHILS % (AUTO) 2.4 % (0-6); HEMATOCRIT 35.7 % (36.0-47.0); HEMOGLOBIN 11.3 g/dL (12.0-15.5); LYMPHOCYTES % (AUTO) 26.6 % (13-45); MEAN CORPUSCULAR HEMOGLOBIN 21.6 pg (27.0-33.4); MEAN CORPUSCULAR HGB CONC 31.6 g/dL (32.0-36.0); MEAN CORPUSCULAR VOLUME 68 fl (80-97); MONOCYTES % (AUTO) 11.5 % (3-13); PLATELET COUNT 178 10^3/uL (150-450); RED BLOOD COUNT 5.23 10^6/uL (3.72-5.28); RED CELL DISTRIBUTION WIDTH 16.4 % (11.5-14.0); SEGMENTED NEUTROPHILS % (AUTO) 58.8 % (42-78); TOTAL CELLS COUNTED % (AUTO) 100 %; WHITE BLOOD COUNT 5.7 10^3/uL (4.0-10.5)
[2018-10-30 10:17] LABS: ALBUMIN 3.8 g/dL (3.5-5.0); ALKALINE PHOSPHATASE 55 U/L (38-126); ANION GAP 10 (5-19); ASPARTATE AMINO TRANSFERASE 12 U/L (14-36); BILIRUBIN,DIRECT 0.2 mg/dL (0.0-0.4); BILIRUBIN,TOTAL 0.4 mg/dL (0.2-1.3); BLOOD UREA NITROGEN 16 mg/dL (7-20); CALCIUM 9.1 mg/dL (8.4-10.2); CARBON DIOXIDE 30 mmol/L (22-30); CHLORIDE 101 mmol/L (98-107); CHOLESTEROL 155.07 mg/dL (0-200); GLUCOSE 167 mg/dL (75-110); POTASSIUM 3.5 mmol/L (3.6-5.0); TOTAL PROTEIN 6.6 g/dL (6.3-8.2); TRIGLYCERIDES 113 mg/dL (<150)
[2018-10-30 10:30] LABS: DIRECT LDL 114 mg/dL (<100)
== END ==
LOC: OD 08:03
PROVIDERS: ATTEND Nurse Practitioner Psychiatric/Mental Health
DX: F31.9 Bipolar disorder, unspecified (principal); F41.1 Generalized anxiety disorder; F51.01 Primary insomnia; Z79.899 Other long term (current) drug therapy
CPT/HCPCS: 36415; 80053; 80061; 80164; 82306; 82607; 84443; 85025

== ENCOUNTER → 2018-11-14 | Outpatient (CLI) | payer MEDICARE, MEDICAID ==
--- NOTE | 2018-11-14 13:57 | WOMENS IMAGING REPORT ---
EXAM DESCRIPTION: 3D SCREENING MAMMO BILAT COMPLETED DATE/TIME: 11/14/2018 10:44 am REASON FOR STUDY: Z12.31 SCREENING MAMMO Z12.31 ENCNTR SCREEN MAMMOGRAM FOR MALIGNANT NEOPLASM OF B RE COMPARISON: Multiple since 2008 EXAM PARAMETERS: Views: Standard craniocaudal and mediolateral oblique views of each breast recorded using digital acquisition and breast tomosynthesis. Read with the assistance of CAD. .[facility] - R2 Marine Design Engineer Version 9.2 LIMITATIONS: None. FINDINGS: No suspicious masses, suspicious calcifications or architectural distortion. No areas of c oncern. IMPRESSION: NEGATIVE MAMMOGRAM. BIRADS 1. BREAST DENSITY: b. There are scattered areas of fibroglandular density. BIRAD: ASSESSMENT: 1 NEGATIVE RECOMMENDATION: ROUTINE SCREENING COMMENT: The patient has been notified of the results by letter per MQSA requirements. Additional no tification policies are in place for contacting patient with suspicious or incomplete findings. Quality ID #[id number]: The [employer] recommends an annual screening mammogram for women aged 40 years or over. This facility utilizes a reminder system to ensure that all patients receive reminder letters, and/or direct phone calls for appointments. This includes reminders for routine scr eening mammograms, diagnostic mammograms, or other Breast Imaging Interventions when appropriate. Th is patient will be placed in the appropriate reminder system. TECHNICAL DOCUMENTATION: FINDING NUMBER: (1) ASSESSMENT: (1) JOB ID: [id number] [email or web address]- All Rights Reserved Reading location - IP/workstation name: [email or web address]
== END ==
LOC: WI 10:05
PROVIDERS: ATTEND Nurse Practitioner
DX: Z12.31 Encounter for screening mammogram for malignant neoplasm of breast (principal)
CPT/HCPCS: 77063; 77067

== ENCOUNTER 2019-03-12 10:39 | Emergency (ER) | payer MEDICARE, MEDICAID ==
[2019-03-12 10:57] VITALS: BP 157/94
--- NOTE | 2019-03-12 11:56 | ER Document Report ---
HPI - HPI Patient complains to provider of: back pain Time Seen by Provider: 03/12/19 11:44 Onset: Other - 3 weeks Onset/Duration: Persistent Quality of pain: Achy Pain Level: 2 Context: 68-year-old female with history of diabetes presents emergency department with complaints of upper back pain. Reports she fell out of bed 3 weeks ago and has had pain to the right upper back for 3 weeks. She reports it hurts more when she lays on her back. Reports the pain will radiate down her right side of her body down her right leg. She denies other symptoms such as fever vomiting diarrhea. Denies pain with void. Reports she is a diabetic and she does void a lot. Reports her sugars have been in the 200s lately. Patient is ambulating without problems. Associated Symptoms: None Exacerbated by: Supine Relieved by: Denies Similar symptoms previously: No Recently seen / treated by doctor: No - REPRODUCTIVE Reproductive: DENIES: : Past Medical History - General Information source: Patient - Social History Smoking Status: Former Smoker Frequency of alcohol use: None Drug Abuse: None Family History: Reviewed & Not Pertinent Patient has suicidal ideation: No Patient has homicidal ideation: No - Past Medical History Cardiac Medical History: Reports: Hx Hypertension Denies: Hx Coronary Artery Disease, Hx Heart Attack Pulmonary Medical History: Denies: Hx Asthma, Hx Bronchitis, Hx COPD, Hx Pneumonia Neurological Medical History: Denies: Hx Cerebrovascular Accident, Hx Seizures Endocrine Medical History: Reports: Hx Diabetes Mellitus Type 2 Renal/ Medical History: Denies: Hx Peritoneal Dialysis Musculoskeletal Medical History: Denies Hx Arthritis Psychiatric Medical History: Reports: Hx Anxiety, Hx Bipolar Disorder, Hx Depression Past Surgical History: Reports: Hx Tubal Ligation, Hx Urinary Tract Surgery. Denies: Hx Hysterectomy - Immunizations Hx Diphtheria, Pertussis, Tetanus Vaccination: Yes Hx Pneumococcal Vaccination: 12/12/13 Vertical Provider Document - CONSTITUTIONAL Agree With Documented VS: Yes Exam Limitations: No Limitations General Appearance: WD/WN, No Apparent Distress - INFECTION CONTROL TRAVEL OUTSIDE OF THE [place] IN LAST 30 DAYS: No - HEENT HEENT: Atraumatic, Normocephalic. negative: Conjuctival Injection - NECK Neck: Normal Inspection, Supple. negative: Lymphadenopathy-Left, Lymphadenopathy-Right - RESPIRATORY Respiratory: Breath Sounds Normal, No Respiratory Distress - CARDIOVASCULAR Cardiovascular: Regular Rate, Regular Rhythm - GI/ABDOMEN Gastrointestinal: Abdomen Soft, Abdomen Non-Tender - BACK Back: Normal Inspection - No obvious deformity. Patient complains of right paraspinal thoracic tenderness with pressure. Has full range of motion denies pain with movement of upper arms. Good distal movement no weakness. - MUSCULOSKELETAL/EXTREMETIES Musculoskeletal/Extremeties: MAEW, FROM, Non-Tender - NEURO Level of Consciousness: Awake, Alert, Appropriate Motor/Sensory: No Motor Deficit - DERM Integumentary: Warm, Dry Adult Front & Back Diagram: 1 - Patient complains of tenderness with palpation denies vertebral tenderness Course - Re-evaluation Re-evalutation: 03/12/19 12:24 X-rays negative for an acute fracture. Patient was instructed on this instructed Tylenol Motrin for the pain follow-up with her primary care provider for reevaluation within 1 week. She verbalized understanding to all instruction s. Thoracic Spine X-Ray 03/12/19 11:51 IMPRESSION: SPONDYLOSIS WITHOUT BONE LESION OR FRACTURE. 1 - Vital Signs Vital signs: Temp Pulse Resp BP Pulse Ox 98.6 F 100 18 157/94 H 96 03/12/19 10:56 03/12/19 10:56 03/12/19 10:56 03/12/19 10:56 03/12/19 10:56 - Diagnostic Test Radiology reviewed: Reports reviewed Discharge - Discharge Clinical Impression: Upper back pain on right side Condition: Stable Disposition: HOME, SELF-CARE Instructions: Ice Packs ([facility]) Additional Instructions: *You have been evaluated for upper back pain *Take ibuprofen as indicated *Rest/Ice packs to the site, 20 minutes on, 20 minutes off *Follow up with a primary care provider within 1 week for recheck *Return to ED for worsening condition, changes, needs Referrals: MONICA JUÁREZ PA [NURSE PRACTITIONER] - Follow up in 3-5 days
--- NOTE | 2019-03-12 12:13 | RADIOLOGY REPORT (SQ) ---
EXAM DESCRIPTION: T SPINE AP/LAT COMPLETED DATE/TIME: 03/12/2019 12:04 pm REASON FOR STUDY: fall off bed pain COMPARISON: None. NUMBER OF VIEWS: Two views. TECHNIQUE: AP and lateral radiographic images acquired of the thoracic spine. LIMITATIONS: None. FINDINGS: MINERALIZATION: Normal. ALIGNMENT: Normal. No scoliosis. VERTEBRAE: No fracture or bone lesion. Maintained height, normal segmentation. DISCS: Multilevel disc space narrowing with osteophytes. HARDWARE: None in the spine. MEDIASTINUM AND SOFT TISSUES: Normal heart size and aortic contour. No soft tissue abnormality. VISUALIZED LUNG LOU: Clear. OTHER: No other significant finding. IMPRESSION: SPONDYLOSIS WITHOUT BONE LESION OR FRACTURE. TECHNICAL DOCUMENTATION: JOB ID: [id number] [employer]- All Rights Reserved Reading location - IP/workstation name: [email or web address]
== END 2019-03-12 12:47 | disposition home or self-care (01) ==
LOC: ER 10:39
DX: M54.9 Dorsalgia, unspecified (principal); W06.XXXA Fall from bed, initial encounter; M47.9 Spondylosis, unspecified; I10 Essential (primary) hypertension; E11.9 Type 2 diabetes mellitus without complications; Z87.891 Personal history of nicotine dependence
CPT/HCPCS: 72070; 82962; 99283

== ENCOUNTER → 2020-01-22 | Outpatient (CLI) | payer MEDICARE, MEDICAID ==
--- NOTE | 2020-01-22 11:26 | WOMENS IMAGING REPORT ---
EXAM DESCRIPTION: 3D SCREENING MAMMO BILAT IMAGES COMPLETED DATE/TIME: 01/22/2020 9:42 am REASON FOR STUDY: Z12.31 ENCOUNTER FOR SCREENING MAMMOGRAM FOR MALIGNANT NEOPLASM OF BREAST Z12.31 ENCNTR SCREEN MAMMOGRAM FOR MALIGNANT NEOPLASM OF SOL COMPARISON: Priors back to 2008 EXAM PARAMETERS: Views: Standard craniocaudal and mediolateral oblique views of each breast recorded using digital acquisition and breast tomosynthesis. Read with the assistance of CAD. [facility] - R2 Pharmacy Technician Infusion Version 9.2 LIMITATIONS: None. FINDINGS: No suspicious masses, suspicious calcifications or architectural distortion. No areas of c oncern. IMPRESSION: NEGATIVE MAMMOGRAM. BIRADS 1. BREAST DENSITY: b. There are scattered areas of fibroglandular density. BIRAD: ASSESSMENT: 1 NEGATIVE RECOMMENDATION: ROUTINE SCREENING COMMENT: The patient has been notified of the results by letter per MQSA requirements. Additional no tification policies are in place for contacting patient with suspicious or incomplete findings. Quality ID #[id number]: The [employer] recommends an annual screening mammogram for women aged 40 years or over. This facility utilizes a reminder system to ensure that all patients receive reminder letters, and/or direct phone calls for appointments. This includes reminders for routine scr eening mammograms, diagnostic mammograms, or other Breast Imaging Interventions when appropriate. Th is patient will be placed in the appropriate reminder system. TECHNICAL DOCUMENTATION: FINDING NUMBER: (1) ASSESSMENT: (1) JOB ID: [id number] [employer]- All Rights Reserved Reading location - IP/workstation name: [email or web address]
== END ==
LOC: WI 09:01
PROVIDERS: ATTEND Nurse Practitioner
DX: Z12.31 Encounter for screening mammogram for malignant neoplasm of breast (principal)
CPT/HCPCS: 77063; 77067